=== PATIENT | male | born 1940 | race Caucasian/White ===

== ENCOUNTER 2017-07-07 00:42 | Inpatient (IN) | payer MEDICARE, OTHER ==
[~2017-07-07] VITALS: Ht 162.6 cm; Wt 63.0 kg
[~2017-07-07 00:42] MED LIST: AUD NEB; BENZ-51 PO; DABI75CA3 PO; DIGO125T PO; DILT30TA38 PO; DOCU100C19 PO; FLUT16H NASAL; FLUT1DIS3 IH; GABA-529 PO; IPRNEB IH; MONT10TA21 PO; MULT-1203 PO; OMEP20 PO; SERT50TA12 PO; TAMS0.4C32 PO; TIOT185 IH
[2017-07-07] MEDS ORDERED: LORA0.5T2 PO (01:12)
[2017-07-07] MEDS ORDERED: DILT60SR PO (01:12)
[2017-07-07] MEDS ORDERED: FURO20 PO (01:12)
[2017-07-07] MEDS ORDERED: ALBU8.5H8 IH (01:12)
[2017-07-07] MEDS ORDERED: MIRT15 PO (01:12)
[2017-07-07] MEDS ORDERED: PRIM50 PO (01:12)
[2017-07-07] MEDS ORDERED: BUDE10.2 IH (01:12)
[2017-07-07] MEDS ORDERED: ALEN70TA48 PO (01:12)
[2017-07-07] MEDS ORDERED: IBUP-2070 PO (01:12)
[2017-07-07] MEDS ORDERED: BENZ-51 PO (01:12)
[2017-07-07] MEDS ORDERED: CHOL200016 PO (01:12)
[2017-07-07] MEDS ORDERED: OMEP20 PO (01:12)
[2017-07-07] MEDS ORDERED: HYDR-309 PO (01:12)
[2017-07-07] MEDS ORDERED: CALC-1038 PO (01:12)
[2017-07-07] MEDS ORDERED: ALBUTEROL SULFATE 5 MG/ML 20 ML NEB SOLN [BULK] NEB ONE (01:45)
[2017-07-07] MEDS ORDERED: IPRATROPIUM BROMIDE 0.5 MG/2.5 ML NEB SOLUTION NEB ONE (01:45)
[2017-07-07 02:00] LABS: BASOPHILS # (AUTO) 0.03 K/uL (0.00-0.20); BASOPHILS % (AUTO) 0.3 % (0.0-2.0); EOSINOPHILS # (AUTO) 0.69 K/uL (0.00-0.70); EOSINOPHILS % (AUTO) 6.57 % (1.0-6.0); HEMATOCRIT 29.8 % (41-53); HEMOGLOBIN 9.5 g/dL (13.5-17.5); LYMPHOCYTES # (AUTO) 1.6 K/uL (1.0-4.8); LYMPHOCYTES % (AUTO) 15.2 % (22.0-44.0); MEAN CORPUSCULAR HEMOGLOBIN 22.9 pg (26.0-34.0); MEAN CORPUSCULAR VOLUME 72 fL (80-100); MONOCYTES # (AUTO) 1.4 K/uL (0.1-1.0); MONOCYTES % (AUTO) 13.1 % (2.0-9.0); NEUTROPHILS # (AUTO) 6.9 K/uL (1.8-7.7); NEUTROPHILS % (AUTO) 64.8 % (40.0-70.0); PLATELET COUNT (AUTO) 245 K/uL (150-450); RED BLOOD CELL COUNT(AUTO) 4.16 MIL/uL (4.50-5.90); RED CELL DISTRIBUTION WIDTH 20.5 % (11.5-14.5); WHITE BLOOD COUNT (AUTO) 10.6 K/uL (4.5-11.0)
[2017-07-07 02:09] LABS: ANION GAP 5 mmol/L (8-16); CALCIUM, TOTAL 8.5 mg/dL (8.8-10.5); CARBON DIOXIDE 31 mmol/L (22-29); CHLORIDE 102 mmol/L (98-107); CREATININE 0.74 mg/dL (0.60-1.30); GLOMERULAR FILTR. RATE CALC > 60 mL/min (>60); POTASSIUM 3.8 mmol/L (3.5-5.1); SODIUM SERUM 138 mmol/L (136-145); UREA NITROGEN, BLOOD 6 mg/dL (7-18)
[2017-07-07 02:15] LABS: ALANINE AMINOTRANSFERASE 23 U/L (12-78); ALBUMIN 2.7 g/dL (3.4-5.0); ASPARTATE AMINOTRANSFERASE 25 U/L (15-37); BILIRUBIN,TOTAL 0.3 mg/dL (0.1-1.0); TOTAL PROTEIN, SERUM 6.5 g/dL (6.4-8.2)
[2017-07-07 02:16] LABS: AMMONIA 20 umol/L (11-32)
[2017-07-07 02:21] LABS: TROPONIN I < 0.02 ng/mL (0.00-0.05)
[2017-07-07 02:27] LABS: GLUCOSE,POINT OF CARE 100 MG/DL (70-110)
[2017-07-07 02:30] LABS: B-TYPE NATRIURETIC PEPTIDE 142 pg/mL (0-100)
[2017-07-07] MEDS ORDERED: MethylPREDNISolone SOD SUCC 125 MG/2 ML VIAL IVP ONE (02:30)
[2017-07-07] MEDS ORDERED: AZITHROMYCIN 500 MG/NS 250 ML IV ONE (02:30)
[2017-07-07 02:53] LABS: RBC MORPHOLOGY COMMENT ABNORMAL RBC MORPH
[2017-07-07 03:49] LABS: ABG A-A DIFF O2 47.8 mmHg (10-20.0); ABG BASE EXCESS -0.6 mmol/L (-2.0-3.0); ABG HCO3 23.9 mmol/L (22.0-26.0); ABG OXYHEMOGLOBIN 95.7 % (94.0-100.0); ABG PCO2 44 mmHg (35-45); ABG PH 7.371 (7.35-7.450); TEMPERATURE, FAHRENHEIT, BG 98.6 FAHREN (96.0-98.6)
[2017-07-07 03:53] LABS: ALLEN TEST, BLOOD GAS Positive
[2017-07-07 03:57] LABS: APPEARANCE,URINE CLEAR (CLEAR); GLUCOSE, URINE (UA) NEGATIVE (NEGATIVE); KETONES,URINE NEGATIVE (NEGATIVE); LEUKOCYTE ESTERASE ,URINE NEGATIVE (NEGATIVE); OCCULT BLOOD,URINE TRACE (NEGATIVE); PROTEIN,URINE NEGATIVE (NEGATIVE)
[2017-07-07] MEDS ORDERED: 0.9% SODIUM CHLORIDE 10 ML SYRINGE IVP PRN (04:00)
[2017-07-07] MEDS ORDERED: ACETAMINOPHEN 325 MG TABLET PO PRN (04:00)
[2017-07-07] MEDS ORDERED: ONDANSETRON HCL 4 MG/2 ML VIAL IVP PRN (04:00)
[2017-07-07 04:23] VITALS: BP 140/100
[2017-07-07 04:23] LABS: WBC,URINE None Seen /HPF (0-5)
[2017-07-07] MEDS ORDERED: PNEUMOCOCCAL VACCINE POLYVALENT 0.5 ML VIAL [PPSV23] IM ONE (05:45)
[2017-07-07] MEDS: IPRATROPIUM BROMIDE 0.5 MG/2.5 ML NEB SOLUTION NEB PRN ×2 (07:15→10:38)
[2017-07-07] MEDS: ALBUTEROL SULFATE 2.5 MG/0.5 ML NEB SOLUTION NEB PRN ×2 (07:15→10:38)
[2017-07-07 07:56] VITALS: BP 118/82
[2017-07-07 11:11] VITALS: BP 123/71
[2017-07-07] MEDS ORDERED: HYDROCODONE/ACETAMINOPHEN 5-325 MG TABLET PO PRN (13:30)
[2017-07-07] MEDS: BENZONATATE 100 MG CAPSULE PO SCH ×2 (15:34→20:16)
[2017-07-07] MEDS: DEXTROSE 5%-0.9% SODIUM CHL 1,000 ML IV SCH (15:34)
[2017-07-07] MEDS: ENOXAPARIN SODIUM 30 MG/0.3 ML PF SYRINGE SQ SCH (15:34)
[2017-07-07] MEDS: CefTRIAXone 1 GM/DEXTROSE 50 ML IV SCH (15:34)
[2017-07-07] MEDS: ALBUTEROL SULFATE 2.5 MG/0.5 ML NEB SOLUTION NEB SCH ×3 (15:41→23:00)
[2017-07-07] MEDS: IPRATROPIUM BROMIDE 0.5 MG/2.5 ML NEB SOLUTION NEB SCH ×3 (15:41→23:00)
[2017-07-07 15:43] VITALS: BP 97/70
[2017-07-07] MEDS: MethylPREDNISolone SOD SUCC 125 MG/2 ML VIAL IVP SCH ×2 (18:11→23:09)
[2017-07-07] MEDS: CALCIUM OYSTER SHELL 500 MG TABLET PO SCH (18:12)
[2017-07-07 19:36] VITALS: BP 139/74
[2017-07-07] MEDS: OMEPRAZOLE 20 MG CAPSULE PO SCH (20:15)
[2017-07-07] MEDS: MIRTAZAPINE 15 MG TABLET PO SCH (20:15)
[2017-07-07] MEDS: GABAPENTIN 100 MG CAPSULE PO SCH (20:16)
[2017-07-07 21:24] LABS: PROCALCITONIN (PCT) < 0.50 ng/mL (<0.50)
[2017-07-08] VITALS: BP 96/51
[2017-07-08] MEDS: IPRATROPIUM BROMIDE 0.5 MG/2.5 ML NEB SOLUTION NEB SCH ×6 (02:54→23:00)
[2017-07-08] MEDS: ALBUTEROL SULFATE 2.5 MG/0.5 ML NEB SOLUTION NEB SCH ×6 (02:54→23:00)
[2017-07-08] MEDS: DEXTROSE 5%-0.9% SODIUM CHL 1,000 ML IV SCH ×2 (03:46→16:25)
[2017-07-08] MEDS: MethylPREDNISolone SOD SUCC 125 MG/2 ML VIAL IVP SCH ×4 (05:00→23:58)
[2017-07-08] MEDS: SERTRALINE HCL 50 MG TABLET PO SCH (08:45)
[2017-07-08] MEDS: CHOLECALCIFEROL (VIT D3) 2,000 UNITS TABLET PO SCH (08:45)
[2017-07-08] MEDS: PRIMIDONE 50 MG TABLET PO SCH (08:45)
[2017-07-08] MEDS: MONTELUKAST SODIUM 10 MG TABLET PO SCH (08:45)
[2017-07-08] MEDS: OMEPRAZOLE 20 MG CAPSULE PO SCH ×2 (08:45→20:27)
[2017-07-08] MEDS: BENZONATATE 100 MG CAPSULE PO SCH ×2 (08:45→20:27)
[2017-07-08] MEDS: ENOXAPARIN SODIUM 30 MG/0.3 ML PF SYRINGE SQ SCH (08:45)
[2017-07-08] MEDS: GABAPENTIN 100 MG CAPSULE PO SCH ×2 (08:45→20:27)
[2017-07-08] MEDS: CALCIUM OYSTER SHELL 500 MG TABLET PO SCH ×3 (08:45→17:44)
[2017-07-08 08:53] LABS: BASOPHILS % (AUTO) 0.1 % (0.0-2.0); EOSINOPHILS % (AUTO) 0 % (1.0-6.0); HEMATOCRIT 31.1 % (41-53); HEMOGLOBIN 9.7 g/dL (13.5-17.5); LYMPHOCYTES # (AUTO) 0.9 K/uL (1.0-4.8); MEAN CORPUSCULAR HEMOGLOBIN 22.7 pg (26.0-34.0); MEAN CORPUSCULAR HGB CONC 31.4 G/dL (31.0-37.0); MEAN CORPUSCULAR VOLUME 72 fL (80-100); MONOCYTES # (AUTO) 0.3 K/uL (0.1-1.0); MONOCYTES % (AUTO) 3.6 % (2.0-9.0); PLATELET COUNT (AUTO) 287 K/uL (150-450); RED BLOOD CELL COUNT(AUTO) 4.29 MIL/uL (4.50-5.90); RED CELL DISTRIBUTION WIDTH 20.7 % (11.5-14.5); WHITE BLOOD COUNT (AUTO) 8.2 K/uL (4.5-11.0)
[2017-07-08 08:54] LABS: NEUTROPHILS % (AUTO) 85.3 % (40.0-70.0)
[2017-07-08 09:09] LABS: ALANINE AMINOTRANSFERASE 23 U/L (12-78); ALBUMIN 2.6 g/dL (3.4-5.0); ANION GAP 8 mmol/L (8-16); ASPARTATE AMINOTRANSFERASE 20 U/L (15-37); BILIRUBIN,TOTAL 0.2 mg/dL (0.1-1.0); CALCIUM, TOTAL 8.5 mg/dL (8.8-10.5); CARBON DIOXIDE 27 mmol/L (22-29); CHLORIDE 106 mmol/L (98-107); CREATININE 0.69 mg/dL (0.60-1.30); GLOMERULAR FILTR. RATE CALC > 60 mL/min (>60); POTASSIUM 3.9 mmol/L (3.5-5.1); SODIUM SERUM 141 mmol/L (136-145); TOTAL PROTEIN, SERUM 7.1 g/dL (6.4-8.2); UREA NITROGEN, BLOOD 9 mg/dL (7-18)
[2017-07-08] MEDS: ONDANSETRON HCL 4 MG/2 ML VIAL IVP PRN ×2 (11:29→17:45)
[2017-07-08 11:41] VITALS: BP 101/57
[2017-07-08 13:03] LABS: VITAMIN B12 LEVEL > 2000 pg/mL (211-911)
[2017-07-08] MEDS: CefTRIAXone 1 GM/DEXTROSE 50 ML IV SCH (14:26)
[2017-07-08 19:49] VITALS: BP 121/65
[2017-07-08] MEDS: MIRTAZAPINE 15 MG TABLET PO SCH (20:28)
[2017-07-09 00:20] VITALS: BP 106/57
[2017-07-09] MEDS: IPRATROPIUM BROMIDE 0.5 MG/2.5 ML NEB SOLUTION NEB SCH ×6 (02:43→23:38)
[2017-07-09] MEDS: ALBUTEROL SULFATE 2.5 MG/0.5 ML NEB SOLUTION NEB SCH ×6 (02:43→23:38)
[2017-07-09 04:12] VITALS: BP 100/58
[2017-07-09] MEDS: MethylPREDNISolone SOD SUCC 125 MG/2 ML VIAL IVP SCH ×3 (04:57→17:06)
[2017-07-09] MEDS: ALENDRONATE SODIUM 70 MG TABLET PO SCH (05:32)
[2017-07-09 07:36] VITALS: BP 119/72
[2017-07-09] MEDS: PRIMIDONE 50 MG TABLET PO SCH (10:04)
[2017-07-09] MEDS: CALCIUM OYSTER SHELL 500 MG TABLET PO SCH ×3 (10:04→17:06)
[2017-07-09] MEDS: GABAPENTIN 100 MG CAPSULE PO SCH ×2 (10:05→20:31)
[2017-07-09] MEDS: SERTRALINE HCL 50 MG TABLET PO SCH (10:06)
[2017-07-09] MEDS: MONTELUKAST SODIUM 10 MG TABLET PO SCH (10:06)
[2017-07-09] MEDS: CHOLECALCIFEROL (VIT D3) 2,000 UNITS TABLET PO SCH (10:06)
[2017-07-09] MEDS: BENZONATATE 100 MG CAPSULE PO SCH ×2 (10:06→20:32)
[2017-07-09] MEDS: OMEPRAZOLE 20 MG CAPSULE PO SCH ×2 (10:06→20:32)
[2017-07-09] MEDS: ENOXAPARIN SODIUM 30 MG/0.3 ML PF SYRINGE SQ SCH (10:07)
[2017-07-09 11:46] VITALS: BP 135/72
[2017-07-09] MEDS ORDERED: SODIUM CHLORIDE 0.9% 500 ML IV ONE (14:02)
[2017-07-09] MEDS: CefTRIAXone 1 GM/DEXTROSE 50 ML IV SCH (14:07)
[2017-07-09] MEDS: ONDANSETRON HCL 4 MG/2 ML VIAL IVP PRN ×2 (14:52→21:15)
[2017-07-09 15:46] VITALS: BP 131/75
[2017-07-09] MEDS ORDERED: MAGNESIUM HYDROXIDE SUSPENSION 30 ML UDCUP PO PRN (18:15)
[2017-07-09 19:37] VITALS: BP 127/68
[2017-07-09] MEDS ORDERED: IOVERSOL 320 MG/ML 100 ML VIAL ONE (20:23)
[2017-07-09] MEDS ORDERED: SODIUM CHLORIDE 0.9% 100 ML ONE (20:23)
[2017-07-09] MEDS ORDERED: BARIUM SULFATE 0.1% SUSPENSION 450 ML BOTTLE ONE (20:25)
[2017-07-09] MEDS: MIRTAZAPINE 15 MG TABLET PO SCH (20:31)
[2017-07-09] MEDS: IRON SUCROSE COMPLEX 100 MG in SODIUM CHLORIDE 0.9% 100 ML IV SCH (20:31)
[2017-07-10] VITALS (7 sets, daily range): BP systolic 110–130; BP diastolic 57–77
[2017-07-10] MEDS: MethylPREDNISolone SOD SUCC 125 MG/2 ML VIAL IVP SCH ×2 (00:25→05:23)
[2017-07-10] MEDS: ALBUTEROL SULFATE 2.5 MG/0.5 ML NEB SOLUTION NEB SCH ×6 (03:07→23:55)
[2017-07-10] MEDS: IPRATROPIUM BROMIDE 0.5 MG/2.5 ML NEB SOLUTION NEB SCH ×6 (03:07→23:55)
[2017-07-10 06:17] LABS: HEMATOCRIT 29.2 % (41-53); HEMOGLOBIN 9.1 g/dL (13.5-17.5); MEAN CORPUSCULAR HEMOGLOBIN 22.7 pg (26.0-34.0); MEAN CORPUSCULAR HGB CONC 31.1 G/dL (31.0-37.0); MEAN CORPUSCULAR VOLUME 73 fL (80-100); PLATELET COUNT (AUTO) 252 K/uL (150-450); RED CELL DISTRIBUTION WIDTH 20.8 % (11.5-14.5); WHITE BLOOD COUNT (AUTO) 9.7 K/uL (4.5-11.0)
[2017-07-10 06:27] LABS: ALANINE AMINOTRANSFERASE 21 U/L (12-78); ALBUMIN 2.6 g/dL (3.4-5.0); AMYLASE 40 U/L (25-115); ANION GAP 5 mmol/L (8-16); ASPARTATE AMINOTRANSFERASE 15 U/L (15-37); BILIRUBIN,TOTAL 0.1 mg/dL (0.1-1.0); CARBON DIOXIDE 32 mmol/L (22-29); CHLORIDE 107 mmol/L (98-107); CREATININE 0.75 mg/dL (0.60-1.30); GLOMERULAR FILTR. RATE CALC > 60 mL/min (>60); PHOSPHORUS 3.1 mg/dL (2.5-4.9); POTASSIUM 4.8 mmol/L (3.5-5.1); SODIUM SERUM 144 mmol/L (136-145); TOTAL PROTEIN, SERUM 6.3 g/dL (6.4-8.2); UREA NITROGEN, BLOOD 13 mg/dL (7-18)
[2017-07-10 07:51] LABS: BAND NEUTROPHILS % (MANUAL) 1 % (1-5); LYMPHOCYTES % (MANUAL) 4 % (22-44); TOTAL CELLS COUNTED 100
[2017-07-10 07:52] LABS: RBC MORPHOLOGY COMMENT ABNORMAL R
[2017-07-10] MEDS: CALCIUM OYSTER SHELL 500 MG TABLET PO SCH ×3 (08:00→17:26)
[2017-07-10] MEDS: SERTRALINE HCL 50 MG TABLET PO SCH (09:00)
[2017-07-10] MEDS: CHOLECALCIFEROL (VIT D3) 2,000 UNITS TABLET PO SCH (09:00)
[2017-07-10] MEDS: BENZONATATE 100 MG CAPSULE PO SCH ×3 (09:00→20:57)
[2017-07-10] MEDS: GABAPENTIN 100 MG CAPSULE PO SCH ×2 (09:00→20:57)
[2017-07-10] MEDS: PRIMIDONE 50 MG TABLET PO SCH (09:00)
[2017-07-10] MEDS: MONTELUKAST SODIUM 10 MG TABLET PO SCH (09:00)
[2017-07-10] MEDS: OMEPRAZOLE 20 MG CAPSULE PO SCH ×2 (09:00→20:57)
[2017-07-10] MEDS: MethylPREDNISolone SOD SUCC 40 MG/ML VIAL IVP SCH ×2 (11:14→17:26)
[2017-07-10] MEDS: CefTRIAXone 1 GM/DEXTROSE 50 ML IV SCH (14:35)
[2017-07-10] MEDS: LORazepam 0.5 MG TABLET PO PRN (17:34)
[2017-07-10] MEDS: MIRTAZAPINE 15 MG TABLET PO SCH (20:57)
[2017-07-10] MEDS: IRON SUCROSE COMPLEX 100 MG in SODIUM CHLORIDE 0.9% 100 ML IV SCH (20:57)
[2017-07-11] MEDS: MethylPREDNISolone SOD SUCC 40 MG/ML VIAL IVP SCH ×5 (00:39→23:39)
[2017-07-11] MEDS: ALBUTEROL SULFATE 2.5 MG/0.5 ML NEB SOLUTION NEB SCH ×6 (03:57→23:25)
[2017-07-11] MEDS: IPRATROPIUM BROMIDE 0.5 MG/2.5 ML NEB SOLUTION NEB SCH ×6 (03:57→23:25)
[2017-07-11 04:40] VITALS: BP 126/68
[2017-07-11 07:30] VITALS: BP 130/81
[2017-07-11] MEDS: CALCIUM OYSTER SHELL 500 MG TABLET PO SCH ×3 (08:00→20:54)
[2017-07-11] MEDS: GABAPENTIN 100 MG CAPSULE PO SCH ×2 (09:00→20:54)
[2017-07-11] MEDS: OMEPRAZOLE 20 MG CAPSULE PO SCH ×2 (09:00→20:54)
[2017-07-11 09:05] LABS: INR 1.2 (0.9-1.1); PROTHROMBIN TIME 12.4 SEC (9.4-11.6)
[2017-07-11] MEDS ORDERED: SODIUM CHLORIDE 0.9% 1,000 ML IV ONE ×3 (11:00→11:15)
[2017-07-11] MEDS ORDERED: LIDOCAINE HCL/PF 2% 5 ML VIAL INJ ONE (12:00)
[2017-07-11] MEDS ORDERED: PROPOFOL 1% 20 ML VIAL IVP ONE (12:00)
[2017-07-11] MEDS ORDERED: PEG 3350/NA SULF,BICARB,CL/KCL 4000 ML SOLUTION PO ONE (12:45)
[2017-07-11] MEDS: PRIMIDONE 50 MG TABLET PO SCH (14:11)
[2017-07-11] MEDS: BENZONATATE 100 MG CAPSULE PO SCH ×3 (14:12→20:54)
[2017-07-11] MEDS: MONTELUKAST SODIUM 10 MG TABLET PO SCH (14:12)
[2017-07-11] MEDS: CHOLECALCIFEROL (VIT D3) 2,000 UNITS TABLET PO SCH (14:13)
[2017-07-11] MEDS: SERTRALINE HCL 50 MG TABLET PO SCH (14:14)
[2017-07-11] MEDS: CefTRIAXone 1 GM/DEXTROSE 50 ML IV SCH (14:52)
[2017-07-11] MEDS: LORazepam 0.5 MG TABLET PO PRN (15:48)
[2017-07-11 16:05] VITALS: BP 139/76
[2017-07-11 19:59] VITALS: BP 147/83
[2017-07-11] MEDS: MIRTAZAPINE 15 MG TABLET PO SCH (20:54)
[2017-07-11] MEDS: IRON SUCROSE COMPLEX 100 MG in SODIUM CHLORIDE 0.9% 100 ML IV SCH (20:55)
[2017-07-11 23:33] VITALS: BP 116/60
[2017-07-12] MEDS: IPRATROPIUM BROMIDE 0.5 MG/2.5 ML NEB SOLUTION NEB SCH ×6 (04:06→23:27)
[2017-07-12] MEDS: ALBUTEROL SULFATE 2.5 MG/0.5 ML NEB SOLUTION NEB SCH ×6 (04:06→23:27)
[2017-07-12 04:58] VITALS: BP 139/73
[2017-07-12] MEDS: MethylPREDNISolone SOD SUCC 40 MG/ML VIAL IVP SCH ×4 (05:11→23:01)
[2017-07-12 06:15] LABS: EOSINOPHILS % (AUTO) 0.1 % (1.0-6.0); HEMATOCRIT 30.1 % (41-53); HEMOGLOBIN 9.4 g/dL (13.5-17.5); LYMPHOCYTES # (AUTO) 0.5 K/uL (1.0-4.8); LYMPHOCYTES % (AUTO) 8.1 % (22.0-44.0); MEAN CORPUSCULAR HEMOGLOBIN 22.6 pg (26.0-34.0); MEAN CORPUSCULAR HGB CONC 31.1 G/dL (31.0-37.0); MEAN CORPUSCULAR VOLUME 72 fL (80-100); MONOCYTES # (AUTO) 0.2 K/uL (0.1-1.0); MONOCYTES % (AUTO) 3.2 % (2.0-9.0); NEUTROPHILS # (AUTO) 5.1 K/uL (1.8-7.7); PLATELET COUNT (AUTO) 257 K/uL (150-450); RED BLOOD CELL COUNT(AUTO) 4.15 MIL/uL (4.50-5.90); WHITE BLOOD COUNT (AUTO) 5.7 K/uL (4.5-11.0)
[2017-07-12 06:27] LABS: ANION GAP 6 mmol/L (8-16); CARBON DIOXIDE 32 mmol/L (22-29); CHLORIDE 106 mmol/L (98-107); CREATININE 0.59 mg/dL (0.60-1.30); GLOMERULAR FILTR. RATE CALC > 60 mL/min (>60); POTASSIUM 3.9 mmol/L (3.5-5.1); SODIUM SERUM 144 mmol/L (136-145); UREA NITROGEN, BLOOD 11 mg/dL (7-18)
[2017-07-12 06:58] LABS: NEUTROPHILS % (AUTO) 88.6 % (40.0-70.0)
[2017-07-12 07:29] VITALS: BP 134/78
[2017-07-12] MEDS: CALCIUM OYSTER SHELL 500 MG TABLET PO SCH ×3 (08:00→18:26)
[2017-07-12 08:32] LABS: RBC MORPHOLOGY COMMENT ABNORMAL RBC MORPH
[2017-07-12] MEDS ORDERED: SODIUM CHLORIDE 0.9% 1,000 ML IV ONE ×2 (10:30→10:39)
[2017-07-12] MEDS ORDERED: MIDAZOLAM HCL 5 MG/ML VIAL ONE (11:38)
[2017-07-12] MEDS ORDERED: FentaNYL CITRATE-PF 100 MCG/2 ML VIAL ONE (11:39)
[2017-07-12 12:55] VITALS: BP 142/92
[2017-07-12] MEDS: PRIMIDONE 50 MG TABLET PO SCH (12:59)
[2017-07-12] MEDS: BENZONATATE 100 MG CAPSULE PO SCH ×3 (12:59→20:23)
[2017-07-12] MEDS: GABAPENTIN 100 MG CAPSULE PO SCH ×2 (12:59→20:22)
[2017-07-12] MEDS: OMEPRAZOLE 20 MG CAPSULE PO SCH ×2 (12:59→20:23)
[2017-07-12] MEDS: CHOLECALCIFEROL (VIT D3) 2,000 UNITS TABLET PO SCH (12:59)
[2017-07-12] MEDS: SERTRALINE HCL 50 MG TABLET PO SCH (12:59)
[2017-07-12] MEDS: MONTELUKAST SODIUM 10 MG TABLET PO SCH (12:59)
[2017-07-12] MEDS: CefTRIAXone 1 GM/DEXTROSE 50 ML IV SCH (14:34)
[2017-07-12] MEDS: IRON SUCROSE COMPLEX 100 MG in SODIUM CHLORIDE 0.9% 100 ML IV SCH (18:27)
[2017-07-12 20:00] VITALS: BP 126/91
[2017-07-12] MEDS: MIRTAZAPINE 15 MG TABLET PO SCH (20:23)
[2017-07-13] VITALS (8 sets, daily range): BP systolic 117–141; BP diastolic 65–82
[2017-07-13] MEDS: ALBUTEROL SULFATE 2.5 MG/0.5 ML NEB SOLUTION NEB SCH ×6 (03:00→23:48)
[2017-07-13] MEDS: IPRATROPIUM BROMIDE 0.5 MG/2.5 ML NEB SOLUTION NEB SCH ×6 (03:00→23:48)
[2017-07-13] MEDS: MethylPREDNISolone SOD SUCC 40 MG/ML VIAL IVP SCH ×4 (05:02→23:28)
[2017-07-13] MEDS ORDERED: TRIAMCINOLONE ACETONIDE 40 MG/ML VIAL IARTIC ONE (08:30)
[2017-07-13] MEDS ORDERED: IOHEXOL 300 MG/ML 10 ML VIAL IARTIC ONE (08:30)
[2017-07-13] MEDS ORDERED: LIDOCAINE HCL/PF 1% 30 ML VIAL INJ ONE (08:30)
[2017-07-13] MEDS ORDERED: BUPIVACAINE HCL/PF 0.75% 10 ML VIAL IARTIC ONE (08:30)
[2017-07-13] MEDS ORDERED: BENZOCAINE 20% 50 MCG/SPRAY 57 GM ONE (09:20)
[2017-07-13] MEDS ORDERED: FentaNYL CITRATE-PF 100 MCG/2 ML VIAL ONE (09:35)
[2017-07-13] MEDS ORDERED: MIDAZOLAM HCL 2 MG/2 ML VIAL ONE (09:36)
[2017-07-13] MEDS ORDERED: FentaNYL CITRATE-PF 100 MCG/2 ML VIAL IVP ONE ×2 (10:15)
[2017-07-13] MEDS ORDERED: MIDAZOLAM HCL 2 MG/2 ML VIAL IVP ONE ×2 (10:15)
[2017-07-13] MEDS ORDERED: BENZOCAINE 20% 30 ML SOLUTION TP ONE (10:15)
[2017-07-13] MEDS: OXYGEN THERAPY IH SCH ×2 (11:12→20:52)
[2017-07-13] MEDS: SERTRALINE HCL 50 MG TABLET PO SCH (11:38)
[2017-07-13] MEDS: CALCIUM OYSTER SHELL 500 MG TABLET PO SCH ×3 (11:38→18:42)
[2017-07-13] MEDS: GABAPENTIN 100 MG CAPSULE PO SCH ×2 (11:38→20:47)
[2017-07-13] MEDS: BENZONATATE 100 MG CAPSULE PO SCH ×3 (11:38→20:47)
[2017-07-13] MEDS: MONTELUKAST SODIUM 10 MG TABLET PO SCH (11:38)
[2017-07-13] MEDS: PRIMIDONE 50 MG TABLET PO SCH (11:38)
[2017-07-13] MEDS: CHOLECALCIFEROL (VIT D3) 2,000 UNITS TABLET PO SCH (11:38)
[2017-07-13] MEDS: OMEPRAZOLE 20 MG CAPSULE PO SCH ×2 (11:38→20:47)
[2017-07-13] MEDS: CefTRIAXone 1 GM/DEXTROSE 50 ML IV SCH (14:56)
[2017-07-13] MEDS ORDERED: PNEUMOCOCCAL VACCINE POLYVALENT 0.5 ML VIAL [PPSV23] IM ONE (15:15)
[2017-07-13] MEDS: IRON SUCROSE COMPLEX 100 MG in SODIUM CHLORIDE 0.9% 100 ML IV SCH (18:44)
[2017-07-13] MEDS: MIRTAZAPINE 15 MG TABLET PO SCH (20:48)
[2017-07-14] VITALS (7 sets, daily range): BP systolic 113–151; BP diastolic 72–89
[2017-07-14] MEDS: ALBUTEROL SULFATE 2.5 MG/0.5 ML NEB SOLUTION NEB SCH ×6 (02:47→23:14)
[2017-07-14] MEDS: IPRATROPIUM BROMIDE 0.5 MG/2.5 ML NEB SOLUTION NEB SCH ×6 (02:47→23:14)
[2017-07-14] MEDS: MethylPREDNISolone SOD SUCC 40 MG/ML VIAL IVP SCH ×4 (05:54→23:18)
[2017-07-14] MEDS: OXYGEN THERAPY IH SCH ×2 (07:59→20:23)
[2017-07-14] MEDS ORDERED: CLARITHROMYCIN 250 MG TABLET PO SCH (09:00)
[2017-07-14] MEDS: OMEPRAZOLE 20 MG CAPSULE PO SCH ×2 (09:11→20:28)
[2017-07-14] MEDS: BENZONATATE 100 MG CAPSULE PO SCH ×3 (09:13→20:28)
[2017-07-14] MEDS: GABAPENTIN 100 MG CAPSULE PO SCH ×2 (09:13→20:24)
[2017-07-14] MEDS: CALCIUM OYSTER SHELL 500 MG TABLET PO SCH ×3 (09:13→17:50)
[2017-07-14] MEDS: SERTRALINE HCL 50 MG TABLET PO SCH (09:13)
[2017-07-14] MEDS: MONTELUKAST SODIUM 10 MG TABLET PO SCH (09:13)
[2017-07-14] MEDS: PRIMIDONE 50 MG TABLET PO SCH (09:14)
[2017-07-14] MEDS ORDERED: CLARITHROMYCIN 500 MG TABLET PO SCH (09:44)
[2017-07-14] MEDS: CLARITHROMYCIN 500 MG TABLET PO SCH ×2 (10:26→20:24)
[2017-07-14] MEDS: CHOLECALCIFEROL (VIT D3) 2,000 UNITS TABLET PO SCH (10:26)
[2017-07-14] MEDS: AMOXICILLIN TRIHYDRATE 500 MG CAPSULE PO SCH ×2 (10:26→20:25)
[2017-07-14] MEDS: CefTRIAXone 1 GM/DEXTROSE 50 ML IV SCH (14:15)
[2017-07-14] MEDS: MIRTAZAPINE 15 MG TABLET PO SCH (20:28)
[2017-07-15] MEDS: ALBUTEROL SULFATE 2.5 MG/0.5 ML NEB SOLUTION NEB SCH ×6 (02:59→23:17)
[2017-07-15] MEDS: IPRATROPIUM BROMIDE 0.5 MG/2.5 ML NEB SOLUTION NEB SCH ×6 (02:59→23:17)
[2017-07-15] MEDS: MethylPREDNISolone SOD SUCC 40 MG/ML VIAL IVP SCH ×4 (05:31→23:07)
[2017-07-15 05:56] VITALS: BP 123/75
[2017-07-15] MEDS: MONTELUKAST SODIUM 10 MG TABLET PO SCH (08:36)
[2017-07-15] MEDS: CALCIUM OYSTER SHELL 500 MG TABLET PO SCH ×3 (08:36→17:58)
[2017-07-15] MEDS: OMEPRAZOLE 20 MG CAPSULE PO SCH ×2 (08:36→20:35)
[2017-07-15] MEDS: BENZONATATE 100 MG CAPSULE PO SCH ×3 (08:36→20:36)
[2017-07-15] MEDS: SERTRALINE HCL 50 MG TABLET PO SCH (08:37)
[2017-07-15] MEDS: GABAPENTIN 100 MG CAPSULE PO SCH ×2 (08:37→20:35)
[2017-07-15] MEDS: CLARITHROMYCIN 500 MG TABLET PO SCH ×2 (08:37→20:35)
[2017-07-15] MEDS: PRIMIDONE 50 MG TABLET PO SCH (08:37)
[2017-07-15] MEDS: AMOXICILLIN TRIHYDRATE 500 MG CAPSULE PO SCH ×2 (08:37→20:35)
[2017-07-15] MEDS: OXYGEN THERAPY IH SCH ×2 (08:38→20:40)
[2017-07-15 09:04] VITALS: BP 126/81
[2017-07-15] MEDS: CHOLECALCIFEROL (VIT D3) 2,000 UNITS TABLET PO SCH (10:34)
[2017-07-15 11:29] VITALS: BP 121/72
[2017-07-15] MEDS: CefTRIAXone 1 GM/DEXTROSE 50 ML IV SCH (14:28)
[2017-07-15] MEDS ORDERED: SODIUM CHLORIDE 0.9% 50 ML ONE (14:29)
[2017-07-15 15:52] VITALS: BP 134/74
[2017-07-15 20:14] VITALS: BP 116/69
[2017-07-15] MEDS: MIRTAZAPINE 15 MG TABLET PO SCH (20:36)
[2017-07-15 23:45] VITALS: BP 111/57
[2017-07-16] MEDS: ALBUTEROL SULFATE 2.5 MG/0.5 ML NEB SOLUTION NEB SCH ×6 (03:20→23:00)
[2017-07-16] MEDS: IPRATROPIUM BROMIDE 0.5 MG/2.5 ML NEB SOLUTION NEB SCH ×6 (03:20→23:00)
[2017-07-16 04:55] VITALS: BP 128/94
[2017-07-16] MEDS: MethylPREDNISolone SOD SUCC 40 MG/ML VIAL IVP SCH (05:01)
[2017-07-16] MEDS: ALENDRONATE SODIUM 70 MG TABLET PO SCH (06:30)
[2017-07-16 07:29] VITALS: BP 128/74
[2017-07-16 07:34] LABS: ALANINE AMINOTRANSFERASE 19 U/L (12-78); ALBUMIN 2.5 g/dL (3.4-5.0); ANION GAP 7 mmol/L (8-16); ASPARTATE AMINOTRANSFERASE 9 U/L (15-37); BILIRUBIN,TOTAL 0.2 mg/dL (0.1-1.0); CALCIUM, TOTAL 8.2 mg/dL (8.8-10.5); CARBON DIOXIDE 29 mmol/L (22-29); CHLORIDE 106 mmol/L (98-107); GLOMERULAR FILTR. RATE CALC > 60 mL/min (>60); SODIUM SERUM 142 mmol/L (136-145); TOTAL PROTEIN, SERUM 5.8 g/dL (6.4-8.2); UREA NITROGEN, BLOOD 17 mg/dL (7-18)
[2017-07-16 08:39] LABS: EOSINOPHILS % (AUTO) 0 % (1.0-6.0); HEMATOCRIT 32.4 % (41-53); LYMPHOCYTES # (AUTO) 0.3 K/uL (1.0-4.8); LYMPHOCYTES % (AUTO) 3.2 % (22.0-44.0); MEAN CORPUSCULAR HEMOGLOBIN 22.9 pg (26.0-34.0); MEAN CORPUSCULAR HGB CONC 30.9 G/dL (31.0-37.0); MEAN CORPUSCULAR VOLUME 74 fL (80-100); MONOCYTES # (AUTO) 0.5 K/uL (0.1-1.0); MONOCYTES % (AUTO) 5.2 % (2.0-9.0); NEUTROPHILS # (AUTO) 9.5 K/uL (1.8-7.7); PLATELET COUNT (AUTO) 262 K/uL (150-450); RED BLOOD CELL COUNT(AUTO) 4.38 MIL/uL (4.50-5.90); RED CELL DISTRIBUTION WIDTH 20.9 % (11.5-14.5); WHITE BLOOD COUNT (AUTO) 10.4 K/uL (4.5-11.0)
[2017-07-16 08:40] LABS: NEUTROPHILS % (AUTO) 91.6 % (40.0-70.0); RBC MORPHOLOGY COMMENT ABNORMAL RBC MORPH
[2017-07-16] MEDS: CLARITHROMYCIN 500 MG TABLET PO SCH ×2 (11:31→20:29)
[2017-07-16] MEDS: CALCIUM OYSTER SHELL 500 MG TABLET PO SCH ×3 (11:31→18:09)
[2017-07-16] MEDS: BENZONATATE 100 MG CAPSULE PO SCH ×3 (11:32→20:30)
[2017-07-16] MEDS: PRIMIDONE 50 MG TABLET PO SCH (11:32)
[2017-07-16] MEDS: CHOLECALCIFEROL (VIT D3) 2,000 UNITS TABLET PO SCH (11:32)
[2017-07-16] MEDS: MONTELUKAST SODIUM 10 MG TABLET PO SCH (11:32)
[2017-07-16] MEDS: OMEPRAZOLE 20 MG CAPSULE PO SCH ×2 (11:32→20:28)
[2017-07-16] MEDS: SERTRALINE HCL 50 MG TABLET PO SCH (11:32)
[2017-07-16] MEDS: GABAPENTIN 100 MG CAPSULE PO SCH ×2 (11:32→20:28)
[2017-07-16] MEDS: PredniSONE 20 MG TABLET PO SCH (11:32)
[2017-07-16] MEDS: CARVEDILOL 6.25 MG TABLET PO SCH ×2 (11:33→20:29)
[2017-07-16] MEDS: OXYGEN THERAPY IH SCH ×2 (11:34→20:28)
[2017-07-16 11:56] VITALS: BP 151/84
[2017-07-16] MEDS ORDERED: CARVEDILOL 6.25 MG TABLET PO ONE (12:30)
[2017-07-16 12:53] VITALS: BP 131/71
[2017-07-16 15:42] VITALS: BP 116/76
[2017-07-16] MEDS: CefTRIAXone 1 GM/DEXTROSE 50 ML IV SCH (16:07)
[2017-07-16] MEDS ORDERED: SODIUM CHLORIDE 0.9% 250 ML IV ONE (16:10)
[2017-07-16] MEDS: AMOXICILLIN TRIHYDRATE 500 MG CAPSULE PO SCH ×2 (18:09→20:30)
[2017-07-16 20:12] VITALS: BP 139/74
[2017-07-16] MEDS: MIRTAZAPINE 15 MG TABLET PO SCH (20:29)
[2017-07-17] VITALS (7 sets, daily range): BP systolic 117–132; BP diastolic 58–79
[2017-07-17] MEDS: ALBUTEROL SULFATE 2.5 MG/0.5 ML NEB SOLUTION NEB SCH ×6 (03:00→22:47)
[2017-07-17] MEDS: IPRATROPIUM BROMIDE 0.5 MG/2.5 ML NEB SOLUTION NEB SCH ×6 (03:00→22:46)
[2017-07-17] MEDS: CALCIUM OYSTER SHELL 500 MG TABLET PO SCH ×3 (08:24→18:57)
[2017-07-17] MEDS: CHOLECALCIFEROL (VIT D3) 2,000 UNITS TABLET PO SCH (08:25)
[2017-07-17] MEDS: GABAPENTIN 100 MG CAPSULE PO SCH ×2 (08:25→20:47)
[2017-07-17] MEDS: CLARITHROMYCIN 500 MG TABLET PO SCH ×2 (08:25→20:46)
[2017-07-17] MEDS: BENZONATATE 100 MG CAPSULE PO SCH ×3 (08:25→20:47)
[2017-07-17] MEDS: PRIMIDONE 50 MG TABLET PO SCH (08:25)
[2017-07-17] MEDS: PredniSONE 20 MG TABLET PO SCH (08:25)
[2017-07-17] MEDS: CARVEDILOL 6.25 MG TABLET PO SCH ×2 (08:25→20:47)
[2017-07-17] MEDS: SERTRALINE HCL 50 MG TABLET PO SCH (08:25)
[2017-07-17] MEDS: AMOXICILLIN TRIHYDRATE 500 MG CAPSULE PO SCH ×2 (08:25→20:47)
[2017-07-17] MEDS: MONTELUKAST SODIUM 10 MG TABLET PO SCH (08:26)
[2017-07-17] MEDS: OMEPRAZOLE 20 MG CAPSULE PO SCH ×2 (08:26→20:47)
[2017-07-17] MEDS: OXYGEN THERAPY IH SCH ×2 (08:26→20:45)
[2017-07-17] MEDS: CefTRIAXone 1 GM/DEXTROSE 50 ML IV SCH (14:57)
[2017-07-17] MEDS ORDERED: CARVEDILOL 6.25 MG TABLET PO ONE (15:15)
[2017-07-17] MEDS: MIRTAZAPINE 15 MG TABLET PO SCH (20:47)
[2017-07-18] MEDS: ALBUTEROL SULFATE 2.5 MG/0.5 ML NEB SOLUTION NEB SCH ×6 (03:00→23:00)
[2017-07-18] MEDS: IPRATROPIUM BROMIDE 0.5 MG/2.5 ML NEB SOLUTION NEB SCH ×6 (03:00→23:00)
[2017-07-18 05:02] VITALS: BP 128/70
[2017-07-18] MEDS: OXYGEN THERAPY IH SCH ×2 (07:26→20:30)
[2017-07-18 07:40] VITALS: BP 141/86
[2017-07-18] MEDS ORDERED: CARVEDILOL 12.5 MG TABLET PO ONE (09:00)
[2017-07-18] MEDS: PRIMIDONE 50 MG TABLET PO SCH (10:02)
[2017-07-18] MEDS: PredniSONE 20 MG TABLET PO SCH (10:02)
[2017-07-18] MEDS: CARVEDILOL 6.25 MG TABLET PO SCH ×2 (10:02→20:28)
[2017-07-18] MEDS: CALCIUM OYSTER SHELL 500 MG TABLET PO SCH ×3 (10:03→18:22)
[2017-07-18] MEDS: OMEPRAZOLE 20 MG CAPSULE PO SCH ×2 (10:03→20:21)
[2017-07-18] MEDS: CHOLECALCIFEROL (VIT D3) 2,000 UNITS TABLET PO SCH (10:03)
[2017-07-18] MEDS: CLARITHROMYCIN 500 MG TABLET PO SCH ×2 (10:03→20:22)
[2017-07-18] MEDS: SERTRALINE HCL 50 MG TABLET PO SCH (10:03)
[2017-07-18] MEDS: BENZONATATE 100 MG CAPSULE PO SCH ×3 (10:03→20:23)
[2017-07-18] MEDS: GABAPENTIN 100 MG CAPSULE PO SCH ×2 (10:03→20:21)
[2017-07-18] MEDS: AMOXICILLIN TRIHYDRATE 500 MG CAPSULE PO SCH ×2 (10:03→20:21)
[2017-07-18] MEDS: MONTELUKAST SODIUM 10 MG TABLET PO SCH (10:03)
[2017-07-18] MEDS ORDERED: CARVEDILOL 6.25 MG TABLET PO ONE ×2 (10:45→12:15)
[2017-07-18 11:47] VITALS: BP 136/70
[2017-07-18 15:25] VITALS: BP 109/68
[2017-07-18 19:44] VITALS: BP 119/77
[2017-07-18] MEDS: MIRTAZAPINE 15 MG TABLET PO SCH (20:22)
[2017-07-19] VITALS (8 sets, daily range): BP systolic 105–147; BP diastolic 58–80
[2017-07-19] MEDS: IPRATROPIUM BROMIDE 0.5 MG/2.5 ML NEB SOLUTION NEB SCH ×6 (03:00→23:00)
[2017-07-19] MEDS: ALBUTEROL SULFATE 2.5 MG/0.5 ML NEB SOLUTION NEB SCH ×6 (03:00→23:00)
[2017-07-19] MEDS: OMEPRAZOLE 20 MG CAPSULE PO SCH ×2 (08:05→21:07)
[2017-07-19] MEDS: CLARITHROMYCIN 500 MG TABLET PO SCH ×2 (08:05→21:07)
[2017-07-19] MEDS: GABAPENTIN 100 MG CAPSULE PO SCH ×2 (08:05→21:08)
[2017-07-19] MEDS: CARVEDILOL 6.25 MG TABLET PO SCH ×2 (08:05→21:08)
[2017-07-19] MEDS: PRIMIDONE 50 MG TABLET PO SCH (08:05)
[2017-07-19] MEDS: BENZONATATE 100 MG CAPSULE PO SCH ×3 (08:05→21:08)
[2017-07-19] MEDS: CALCIUM OYSTER SHELL 500 MG TABLET PO SCH ×3 (08:05→18:00)
[2017-07-19] MEDS: OXYGEN THERAPY IH SCH ×2 (08:06→21:15)
[2017-07-19] MEDS ORDERED: METOPROLOL TARTRATE 50 MG TABLET PO ONE ×2 (09:00→12:00)
[2017-07-19] MEDS: CHOLECALCIFEROL (VIT D3) 2,000 UNITS TABLET PO SCH (10:09)
[2017-07-19] MEDS: PredniSONE 20 MG TABLET PO SCH (10:10)
[2017-07-19] MEDS: SERTRALINE HCL 50 MG TABLET PO SCH (10:10)
[2017-07-19] MEDS: MONTELUKAST SODIUM 10 MG TABLET PO SCH (10:10)
[2017-07-19] MEDS: AMOXICILLIN TRIHYDRATE 500 MG CAPSULE PO SCH ×2 (10:10→21:07)
[2017-07-19] MEDS ORDERED: NITROGLYCERIN 400 MCG/SUBLINGUAL SPRAY 4.9 GM BOTTLE SL ONE (12:00)
[2017-07-19] MEDS ORDERED: METOPROLOL TARTRATE 5 MG/5 ML VIAL ONE ×2 (12:01)
[2017-07-19] MEDS ORDERED: IOVERSOL 350 MG/ML 150 ML VIAL ONE (12:06)
[2017-07-19] MEDS ORDERED: SODIUM CHLORIDE 0.9% 100 ML ONE (12:06)
[2017-07-19] MEDS ORDERED: METOPROLOL TARTRATE 5 MG/5 ML VIAL IVP ONE ×3 (12:20→13:00)
[2017-07-19] MEDS ORDERED: SODIUM CHLORIDE 0.9% 1,000 ML IV ONE (17:30)
[2017-07-19] MEDS ORDERED: HEPARIN SODIUM,PORCINE 5,000 UNITS/ML VIAL IVP PRN (20:00)
[2017-07-19 20:43] LABS: BASOPHILS # (AUTO) 0.05 K/uL (0.00-0.20); BASOPHILS % (AUTO) 0.6 % (0.0-2.0); EOSINOPHILS % (AUTO) 0.03 % (1.0-6.0); HEMATOCRIT 36.3 % (41-53); HEMOGLOBIN 11.6 g/dL (13.5-17.5); LYMPHOCYTES # (AUTO) 0.4 K/uL (1.0-4.8); LYMPHOCYTES % (AUTO) 4.6 % (22.0-44.0); MEAN CORPUSCULAR HEMOGLOBIN 23.8 pg (26.0-34.0); MEAN CORPUSCULAR HGB CONC 31.9 G/dL (31.0-37.0); MEAN CORPUSCULAR VOLUME 75 fL (80-100); MONOCYTES # (AUTO) 0.1 K/uL (0.1-1.0); MONOCYTES % (AUTO) 1.3 % (2.0-9.0); NEUTROPHILS # (AUTO) 7.9 K/uL (1.8-7.7); PLATELET COUNT (AUTO) 206 K/uL (150-450); RED BLOOD CELL COUNT(AUTO) 4.87 MIL/uL (4.50-5.90); RED CELL DISTRIBUTION WIDTH 24.5 % (11.5-14.5); WHITE BLOOD COUNT (AUTO) 8.5 K/uL (4.5-11.0)
[2017-07-19 21:00] LABS: INR 1.2 (0.9-1.1); PROTHROMBIN TIME 12.4 SEC (9.4-11.6)
[2017-07-19 21:04] LABS: NEUTROPHILS % (AUTO) 93.4 % (40.0-70.0)
[2017-07-19] MEDS: MIRTAZAPINE 15 MG TABLET PO SCH (21:07)
[2017-07-19 21:38] LABS: RBC MORPHOLOGY COMMENT ABNORMAL RBC MORPH
[2017-07-19] MEDS: HEPARIN SODIUM 25000 UNITS/D5W 250 ML IV PRN (21:45)
[2017-07-20 00:10] VITALS: BP 134/75
[2017-07-20] MEDS: ALBUTEROL SULFATE 2.5 MG/0.5 ML NEB SOLUTION NEB SCH ×6 (03:00→23:40)
[2017-07-20] MEDS: IPRATROPIUM BROMIDE 0.5 MG/2.5 ML NEB SOLUTION NEB SCH ×6 (03:00→23:40)
[2017-07-20 04:06] LABS: BASOPHILS % (AUTO) 0.1 % (0.0-2.0); EOSINOPHILS % (AUTO) 0.6 % (1.0-6.0); HEMATOCRIT 34.6 % (41-53); HEMOGLOBIN 10.8 g/dL (13.5-17.5); LYMPHOCYTES % (AUTO) 10.6 % (22.0-44.0); MEAN CORPUSCULAR HEMOGLOBIN 23.3 pg (26.0-34.0); MEAN CORPUSCULAR HGB CONC 31.1 G/dL (31.0-37.0); MEAN CORPUSCULAR VOLUME 75 fL (80-100); MONOCYTES # (AUTO) 0.8 K/uL (0.1-1.0); MONOCYTES % (AUTO) 8.7 % (2.0-9.0); NEUTROPHILS # (AUTO) 7.3 K/uL (1.8-7.7); PLATELET COUNT (AUTO) 204 K/uL (150-450); RED BLOOD CELL COUNT(AUTO) 4.62 MIL/uL (4.50-5.90); RED CELL DISTRIBUTION WIDTH 23.6 % (11.5-14.5); WHITE BLOOD COUNT (AUTO) 9.2 K/uL (4.5-11.0)
[2017-07-20 04:09] LABS: ANION GAP 3 mmol/L (8-16); CALCIUM, TOTAL 7.9 mg/dL (8.8-10.5); CARBON DIOXIDE 34 mmol/L (22-29); CHLORIDE 104 mmol/L (98-107); CREATININE 0.64 mg/dL (0.60-1.30); GLOMERULAR FILTR. RATE CALC > 60 mL/min (>60); POTASSIUM 4.1 mmol/L (3.5-5.1); SODIUM SERUM 141 mmol/L (136-145); UREA NITROGEN, BLOOD 19 mg/dL (7-18)
[2017-07-20 04:10] VITALS: BP 137/81
[2017-07-20 04:34] LABS: RBC MORPHOLOGY COMMENT ABNORMAL RBC MORPH
[2017-07-20] MEDS: HEPARIN SODIUM 25000 UNITS/D5W 250 ML IV PRN ×2 (05:02→23:01)
[2017-07-20 07:24] VITALS: BP 135/89
[2017-07-20] MEDS: CLARITHROMYCIN 500 MG TABLET PO SCH ×2 (08:43→21:42)
[2017-07-20] MEDS: CALCIUM OYSTER SHELL 500 MG TABLET PO SCH ×3 (08:43→17:29)
[2017-07-20] MEDS: PRIMIDONE 50 MG TABLET PO SCH (08:43)
[2017-07-20] MEDS: AMOXICILLIN TRIHYDRATE 500 MG CAPSULE PO SCH ×2 (08:43→21:45)
[2017-07-20] MEDS: CHOLECALCIFEROL (VIT D3) 2,000 UNITS TABLET PO SCH (08:43)
[2017-07-20] MEDS: MONTELUKAST SODIUM 10 MG TABLET PO SCH (08:44)
[2017-07-20] MEDS: CARVEDILOL 6.25 MG TABLET PO SCH ×2 (08:44→21:45)
[2017-07-20] MEDS: BENZONATATE 100 MG CAPSULE PO SCH ×3 (08:44→21:41)
[2017-07-20] MEDS: SERTRALINE HCL 50 MG TABLET PO SCH (08:44)
[2017-07-20] MEDS: GABAPENTIN 100 MG CAPSULE PO SCH ×2 (08:44→21:45)
[2017-07-20] MEDS: OMEPRAZOLE 20 MG CAPSULE PO SCH ×2 (08:44→21:44)
[2017-07-20] MEDS: PredniSONE 20 MG TABLET PO SCH (08:45)
[2017-07-20 11:25] VITALS: BP 129/75
[2017-07-20] MEDS: OXYGEN THERAPY IH SCH ×2 (12:12→20:02)
[2017-07-20 15:33] VITALS: BP 156/75
[2017-07-20 20:01] VITALS: BP 139/80
[2017-07-20] MEDS: MIRTAZAPINE 15 MG TABLET PO SCH (21:45)
[2017-07-21 00:03] VITALS: BP 114/81
[2017-07-21] MEDS: ALBUTEROL SULFATE 2.5 MG/0.5 ML NEB SOLUTION NEB SCH ×6 (03:46→22:53)
[2017-07-21] MEDS: IPRATROPIUM BROMIDE 0.5 MG/2.5 ML NEB SOLUTION NEB SCH ×6 (03:47→22:53)
[2017-07-21 05:02] VITALS: BP 133/88
[2017-07-21 06:58] LABS: BASOPHILS # (AUTO) 0.01 K/uL (0.00-0.20); BASOPHILS % (AUTO) 0.2 % (0.0-2.0); EOSINOPHILS # (AUTO) 0.07 K/uL (0.00-0.70); EOSINOPHILS % (AUTO) 1.08 % (1.0-6.0); HEMATOCRIT 33.6 % (41-53); HEMOGLOBIN 10.5 g/dL (13.5-17.5); LYMPHOCYTES # (AUTO) 1.3 K/uL (1.0-4.8); LYMPHOCYTES % (AUTO) 19.3 % (22.0-44.0); MEAN CORPUSCULAR HEMOGLOBIN 23.6 pg (26.0-34.0); MEAN CORPUSCULAR HGB CONC 31.2 G/dL (31.0-37.0); MEAN CORPUSCULAR VOLUME 76 fL (80-100); MONOCYTES # (AUTO) 0.8 K/uL (0.1-1.0); MONOCYTES % (AUTO) 11.9 % (2.0-9.0); NEUTROPHILS # (AUTO) 4.4 K/uL (1.8-7.7); NEUTROPHILS % (AUTO) 67.5 % (40.0-70.0); PLATELET COUNT (AUTO) 163 K/uL (150-450); RED BLOOD CELL COUNT(AUTO) 4.45 MIL/uL (4.50-5.90); RED CELL DISTRIBUTION WIDTH 24.3 % (11.5-14.5); WHITE BLOOD COUNT (AUTO) 6.6 K/uL (4.5-11.0)
[2017-07-21 07:57] VITALS: BP 139/75
[2017-07-21] MEDS: OXYGEN THERAPY IH SCH ×2 (08:53→20:15)
[2017-07-21] MEDS: CHOLECALCIFEROL (VIT D3) 2,000 UNITS TABLET PO SCH (08:54)
[2017-07-21] MEDS: CLARITHROMYCIN 500 MG TABLET PO SCH ×2 (08:54→20:16)
[2017-07-21] MEDS: CARVEDILOL 6.25 MG TABLET PO SCH ×2 (08:54→20:17)
[2017-07-21] MEDS: OMEPRAZOLE 20 MG CAPSULE PO SCH ×2 (08:54→20:17)
[2017-07-21] MEDS: SERTRALINE HCL 50 MG TABLET PO SCH (08:54)
[2017-07-21] MEDS: PredniSONE 20 MG TABLET PO SCH (08:54)
[2017-07-21] MEDS: BENZONATATE 100 MG CAPSULE PO SCH ×3 (08:54→20:17)
[2017-07-21] MEDS: CALCIUM OYSTER SHELL 500 MG TABLET PO SCH ×3 (08:54→17:38)
[2017-07-21] MEDS: MONTELUKAST SODIUM 10 MG TABLET PO SCH (08:55)
[2017-07-21] MEDS: PRIMIDONE 50 MG TABLET PO SCH (08:55)
[2017-07-21] MEDS: AMOXICILLIN TRIHYDRATE 500 MG CAPSULE PO SCH ×2 (08:55→20:16)
[2017-07-21] MEDS: GABAPENTIN 100 MG CAPSULE PO SCH ×2 (08:55→20:17)
[2017-07-21 09:04] LABS: RBC MORPHOLOGY COMMENT DIMORPHIC RBC
[2017-07-21 11:45] VITALS: BP 114/61
[2017-07-21] MEDS: HEPARIN SODIUM,PORCINE 5,000 UNITS/ML VIAL IVP PRN (15:31)
[2017-07-21 16:19] VITALS: BP 129/67
[2017-07-21 20:07] VITALS: BP 123/70
[2017-07-21] MEDS: MIRTAZAPINE 15 MG TABLET PO SCH (20:17)
[2017-07-21] MEDS: HEPARIN SODIUM 25000 UNITS/D5W 250 ML IV PRN (22:52)
[2017-07-22] VITALS (7 sets, daily range): BP systolic 106–128; BP diastolic 55–97
[2017-07-22] MEDS: IPRATROPIUM BROMIDE 0.5 MG/2.5 ML NEB SOLUTION NEB SCH ×6 (03:51→23:07)
[2017-07-22] MEDS: ALBUTEROL SULFATE 2.5 MG/0.5 ML NEB SOLUTION NEB SCH ×6 (03:51→23:07)
[2017-07-22] MEDS: HEPARIN SODIUM 25000 UNITS/D5W 250 ML IV PRN ×3 (03:55→20:43)
[2017-07-22 06:13] LABS: BASOPHILS % (AUTO) 0.3 % (0.0-2.0); EOSINOPHILS % (AUTO) 0.4 % (1.0-6.0); HEMATOCRIT 33.5 % (41-53); HEMOGLOBIN 10.7 g/dL (13.5-17.5); LYMPHOCYTES # (AUTO) 1.2 K/uL (1.0-4.8); LYMPHOCYTES % (AUTO) 16.6 % (22.0-44.0); MEAN CORPUSCULAR HEMOGLOBIN 24.2 pg (26.0-34.0); MEAN CORPUSCULAR HGB CONC 31.9 G/dL (31.0-37.0); MEAN CORPUSCULAR VOLUME 76 fL (80-100); MONOCYTES # (AUTO) 0.9 K/uL (0.1-1.0); MONOCYTES % (AUTO) 11.8 % (2.0-9.0); NEUTROPHILS # (AUTO) 5.2 K/uL (1.8-7.7); NEUTROPHILS % (AUTO) 70.9 % (40.0-70.0); PLATELET COUNT (AUTO) 160 K/uL (150-450); RED BLOOD CELL COUNT(AUTO) 4.42 MIL/uL (4.50-5.90); RED CELL DISTRIBUTION WIDTH 25.5 % (11.5-14.5); WHITE BLOOD COUNT (AUTO) 7.3 K/uL (4.5-11.0)
[2017-07-22] MEDS: CLARITHROMYCIN 500 MG TABLET PO SCH ×2 (08:49→20:43)
[2017-07-22] MEDS: CALCIUM OYSTER SHELL 500 MG TABLET PO SCH ×3 (08:50→17:09)
[2017-07-22] MEDS: GABAPENTIN 100 MG CAPSULE PO SCH ×2 (08:50→20:45)
[2017-07-22] MEDS: PRIMIDONE 50 MG TABLET PO SCH (08:50)
[2017-07-22] MEDS: AMOXICILLIN TRIHYDRATE 500 MG CAPSULE PO SCH ×2 (08:50→20:44)
[2017-07-22] MEDS: OMEPRAZOLE 20 MG CAPSULE PO SCH ×2 (08:51→20:44)
[2017-07-22] MEDS: MONTELUKAST SODIUM 10 MG TABLET PO SCH (08:51)
[2017-07-22] MEDS: BENZONATATE 100 MG CAPSULE PO SCH ×3 (08:51→20:43)
[2017-07-22] MEDS: PredniSONE 20 MG TABLET PO SCH (08:51)
[2017-07-22] MEDS: CHOLECALCIFEROL (VIT D3) 2,000 UNITS TABLET PO SCH (08:51)
[2017-07-22] MEDS: CARVEDILOL 6.25 MG TABLET PO SCH ×2 (08:51→20:45)
[2017-07-22] MEDS: SERTRALINE HCL 50 MG TABLET PO SCH (08:51)
[2017-07-22] MEDS: OXYGEN THERAPY IH SCH ×2 (08:52→19:46)
[2017-07-22] MEDS: WARFARIN SODIUM 5 MG TABLET PO ONE ×2 (16:35→17:09)
[2017-07-22] MEDS: HEPARIN SODIUM,PORCINE 5,000 UNITS/ML VIAL IVP PRN (16:53)
[2017-07-22] MEDS: MIRTAZAPINE 15 MG TABLET PO SCH (20:45)
[2017-07-23] MEDS: IPRATROPIUM BROMIDE 0.5 MG/2.5 ML NEB SOLUTION NEB SCH ×6 (03:34→23:26)
[2017-07-23] MEDS: ALBUTEROL SULFATE 2.5 MG/0.5 ML NEB SOLUTION NEB SCH ×6 (03:34→23:26)
[2017-07-23 04:08] VITALS: BP 111/59
[2017-07-23 06:30] LABS: BASOPHILS # (AUTO) 0.01 K/uL (0.00-0.20); BASOPHILS % (AUTO) 0.1 % (0.0-2.0); EOSINOPHILS # (AUTO) 0.04 K/uL (0.00-0.70); EOSINOPHILS % (AUTO) 0.44 % (1.0-6.0); HEMOGLOBIN 11.1 g/dL (13.5-17.5); LYMPHOCYTES # (AUTO) 1.2 K/uL (1.0-4.8); LYMPHOCYTES % (AUTO) 13.9 % (22.0-44.0); MEAN CORPUSCULAR HEMOGLOBIN 23.5 pg (26.0-34.0); MEAN CORPUSCULAR HGB CONC 30.9 G/dL (31.0-37.0); MEAN CORPUSCULAR VOLUME 76 fL (80-100); MONOCYTES # (AUTO) 0.9 K/uL (0.1-1.0); MONOCYTES % (AUTO) 10.5 % (2.0-9.0); NEUTROPHILS # (AUTO) 6.3 K/uL (1.8-7.7); NEUTROPHILS % (AUTO) 75.1 % (40.0-70.0); PLATELET COUNT (AUTO) 158 K/uL (150-450); RED BLOOD CELL COUNT(AUTO) 4.72 MIL/uL (4.50-5.90); RED CELL DISTRIBUTION WIDTH 26.1 % (11.5-14.5); WHITE BLOOD COUNT (AUTO) 8.4 K/uL (4.5-11.0)
[2017-07-23] MEDS: ALENDRONATE SODIUM 70 MG TABLET PO SCH (06:32)
[2017-07-23 06:34] LABS: INR 1.2 (0.9-1.1); PROTHROMBIN TIME 12.2 SEC (9.4-11.6)
[2017-07-23 07:33] VITALS: BP 116/69
[2017-07-23] MEDS: CALCIUM OYSTER SHELL 500 MG TABLET PO SCH ×3 (08:34→18:03)
[2017-07-23] MEDS: CLARITHROMYCIN 500 MG TABLET PO SCH ×2 (08:35→20:07)
[2017-07-23] MEDS: CARVEDILOL 6.25 MG TABLET PO SCH ×2 (08:36→20:06)
[2017-07-23] MEDS: PredniSONE 20 MG TABLET PO SCH (08:36)
[2017-07-23] MEDS: OMEPRAZOLE 20 MG CAPSULE PO SCH ×2 (08:37→20:06)
[2017-07-23] MEDS: AMOXICILLIN TRIHYDRATE 500 MG CAPSULE PO SCH ×2 (08:38→20:06)
[2017-07-23] MEDS: SERTRALINE HCL 50 MG TABLET PO SCH (08:38)
[2017-07-23] MEDS: MONTELUKAST SODIUM 10 MG TABLET PO SCH (08:38)
[2017-07-23] MEDS: BENZONATATE 100 MG CAPSULE PO SCH ×3 (08:39→20:06)
[2017-07-23] MEDS: PRIMIDONE 50 MG TABLET PO SCH (08:39)
[2017-07-23] MEDS: CHOLECALCIFEROL (VIT D3) 2,000 UNITS TABLET PO SCH (08:40)
[2017-07-23] MEDS: GABAPENTIN 100 MG CAPSULE PO SCH ×2 (08:40→20:07)
[2017-07-23] MEDS: OXYGEN THERAPY IH SCH ×2 (08:44→20:07)
[2017-07-23] MEDS: HEPARIN SODIUM 25000 UNITS/D5W 250 ML IV PRN ×2 (09:58→22:24)
[2017-07-23 10:01] LABS: RBC MORPHOLOGY COMMENT DIMORPHIC RBC
[2017-07-23 11:42] VITALS: BP 123/72
[2017-07-23 15:40] VITALS: BP 127/81
[2017-07-23] MEDS ORDERED: WARFARIN SODIUM 5 MG TABLET PO ONE (17:00)
[2017-07-23] MEDS: MIRTAZAPINE 15 MG TABLET PO SCH (20:07)
[2017-07-23 20:16] VITALS: BP 110/78
[2017-07-23] MEDS ORDERED: SODIUM CHLORIDE 0.9% 250 ML IV ONE (22:54)
[2017-07-24 00:04] VITALS: BP 118/75
[2017-07-24] MEDS: ALBUTEROL SULFATE 2.5 MG/0.5 ML NEB SOLUTION NEB SCH ×5 (02:46→19:10)
[2017-07-24] MEDS: IPRATROPIUM BROMIDE 0.5 MG/2.5 ML NEB SOLUTION NEB SCH ×5 (02:46→19:10)
[2017-07-24 05:07] VITALS: BP 121/74
[2017-07-24 07:05] LABS: BASOPHILS % (AUTO) 0.3 % (0.0-2.0); EOSINOPHILS % (AUTO) 0.4 % (1.0-6.0); HEMATOCRIT 35.7 % (41-53); HEMOGLOBIN 11.3 g/dL (13.5-17.5); LYMPHOCYTES # (AUTO) 1.4 K/uL (1.0-4.8); LYMPHOCYTES % (AUTO) 14.8 % (22.0-44.0); MEAN CORPUSCULAR HGB CONC 31.6 G/dL (31.0-37.0); MEAN CORPUSCULAR VOLUME 76 fL (80-100); MONOCYTES # (AUTO) 0.9 K/uL (0.1-1.0); MONOCYTES % (AUTO) 9.6 % (2.0-9.0); NEUTROPHILS % (AUTO) 74.9 % (40.0-70.0); PLATELET COUNT (AUTO) 149 K/uL (150-450); RED CELL DISTRIBUTION WIDTH 26.6 % (11.5-14.5); WHITE BLOOD COUNT (AUTO) 9.4 K/uL (4.5-11.0)
[2017-07-24] MEDS: OXYGEN THERAPY IH SCH (07:33)
[2017-07-24 07:37] LABS: INR 3.4 (0.9-1.1); PROTHROMBIN TIME 36.2 SEC (9.4-11.6)
[2017-07-24 07:41] VITALS: BP 120/75
[2017-07-24] MEDS: CALCIUM OYSTER SHELL 500 MG TABLET PO SCH ×2 (08:15→12:47)
[2017-07-24] MEDS: CARVEDILOL 6.25 MG TABLET PO SCH (08:15)
[2017-07-24] MEDS: GABAPENTIN 100 MG CAPSULE PO SCH (08:19)
[2017-07-24] MEDS: PRIMIDONE 50 MG TABLET PO SCH (08:19)
[2017-07-24] MEDS: PredniSONE 20 MG TABLET PO SCH (08:19)
[2017-07-24] MEDS: MONTELUKAST SODIUM 10 MG TABLET PO SCH (08:19)
[2017-07-24] MEDS: CHOLECALCIFEROL (VIT D3) 2,000 UNITS TABLET PO SCH (08:20)
[2017-07-24] MEDS: BENZONATATE 100 MG CAPSULE PO SCH ×2 (08:20→16:00)
[2017-07-24 08:52] LABS: RBC MORPHOLOGY COMMENT ABNORMAL RBC MORPH
[2017-07-24 11:31] VITALS: BP 124/70
[2017-07-24] MEDS: SERTRALINE HCL 50 MG TABLET PO SCH (12:47)
[2017-07-24 15:12] VITALS: BP 118/67
[2017-07-24] MEDS ORDERED: WARFARIN SODIUM 2.5 MG TABLET PO ONE (17:00)
[2017-07-24] MEDS ORDERED: PRED10 PO (18:55)
[2017-07-24] MEDS ORDERED: PRED1 PO ×2 (18:55)
[2017-07-24] MEDS ORDERED: WARF2.5 PO (18:56)
[2017-07-25] MEDS ORDERED: WARFARIN SODIUM 2.5 MG TABLET PO SCH (17:00)
== END 2017-07-24 19:45 | disposition home or self-care (01) | DRG 190 ==
LOC: EMS 00:44 → 5S 03:54
PROVIDERS: ADMIT Internal Medicine; ATTEND Internal Medicine
PROC: 0DB68ZX Excision of Stomach, Via Natural or Artificial Opening Endoscopic, Diagnostic (ICD-10-PCS; principal; 2017-07-11 12:00)
PROC: 0DBK8ZX Excision of Ascending Colon, Via Natural or Artificial Opening Endoscopic, Diagnostic (ICD-10-PCS; 2017-07-12)
PROC: B246ZZ4 Ultrasonography of Right and Left Heart, Transesophageal (ICD-10-PCS; 2017-07-13)
PROC: B24CZZ4 Ultrasonography of Pericardium, Transesophageal (ICD-10-PCS; 2017-07-13)
DX: J44.1 Chronic obstructive pulmonary disease with (acute) exacerbation (principal); I26.99 Other pulmonary embolism without acute cor pulmonale; E43 Unspecified severe protein-calorie malnutrition; E86.0 Dehydration; I48.2 Chronic atrial fibrillation; N39.0 Urinary tract infection, site not specified; K31.84 Gastroparesis; R62.7 Adult failure to thrive; F32.9 Major depressive disorder, single episode, unspecified; I10 Essential (primary) hypertension; D50.9 Iron deficiency anemia, unspecified; F41.9 Anxiety disorder, unspecified; K21.9 Gastro-esophageal reflux disease without esophagitis; D12.2 Benign neoplasm of ascending colon; K29.70 Gastritis, unspecified, without bleeding; E78.00 Pure hypercholesterolemia, unspecified; K43.9 Ventral hernia without obstruction or gangrene; K59.00 Constipation, unspecified; K64.8 Other hemorrhoids; M81.0 Age-related osteoporosis without current pathological fracture; R29.6 Repeated falls; M19.90 Unspecified osteoarthritis, unspecified site; Z87.891 Personal history of nicotine dependence; Z68.23 Body mass index [BMI] 23.0-23.9, adult; Z79.899 Other long term (current) drug therapy; Z79.82 Long term (current) use of aspirin; Z82.49 Family history of ischemic heart disease and other diseases of the circulatory system
CPT/HCPCS: 51702; 71275; 74177; 75574; 82270; 82271; 82607; 82746; 82805; 82948; 82962; 83540; 83550; 83735; 84100; 84145; 84443; 85007; 86140; 87040; 88305; 88312; 90471; 93005; 93306; 93312; 93970; 94640; 94667; 94668; 96374; 97110; 97116; 97162; 97165; 97530; 97535; 99285; J0456; J0696; J1644; J1650; J1756; J2250; J2405; J2704; J2920; J2930; J3010; J3301; J3490; J7030; J7040; J7042; J7050

== ENCOUNTER → 2017-09-14 | Outpatient (CLI) | payer MEDICARE, OTHER ==
[~2017-09-14] MED LIST changes: +ALBU8.5H8 IH; +ALEN70TA48 PO; +BUDE10.2 IH; +CALC-1038 PO; +CHOL200016 PO; -DABI75CA3 PO; -DILT30TA38 PO; +DILT60SR PO; -DOCU100C19 PO; -FLUT16H NASAL; -FLUT1DIS3 IH; +FURO20 PO; +HYDR-309 PO; +IBUP-2070 PO; +LORA0.5T2 PO; +MIRT15 PO; +PRED1 PO; +PRED10 PO; +PRED20 PO; +PRIM50 PO; -TAMS0.4C32 PO; -TIOT185 IH; +WARF2.5 PO
[2017-09-14 15:07] LABS: ALANINE AMINOTRANSFERASE 24 U/L (12-78); ALBUMIN 3.2 g/dL (3.4-5.0); ANION GAP 7 mmol/L (8-16); ASPARTATE AMINOTRANSFERASE 20 U/L (15-37); BILIRUBIN,TOTAL 0.2 mg/dL (0.1-1.0); CALCIUM, TOTAL 9.1 mg/dL (8.8-10.5); CARBON DIOXIDE 30 mmol/L (22-29); CHLORIDE 102 mmol/L (98-107); CREATININE 0.87 mg/dL (0.60-1.30); GLOMERULAR FILTR. RATE CALC > 60 mL/min (>60); POTASSIUM 4.7 mmol/L (3.5-5.1); SODIUM SERUM 139 mmol/L (136-145); UREA NITROGEN, BLOOD 10 mg/dL (7-18)
== END | disposition home or self-care (01) ==
LOC: LABPV 12:57
PROVIDERS: ATTEND Internal Medicine
DX: I11.9 Hypertensive heart disease without heart failure (principal)

== ENCOUNTER → 2017-09-20 | Outpatient (CLI) | payer MEDICARE, OTHER ==
[~2017-09-20] MED LIST changes: +GADOBUTROL 1 MMOL/ML 10 ML VIAL IVP ONE
== END | disposition home or self-care (01) ==
LOC: RADMN 13:14
PROVIDERS: ATTEND Internal Medicine
DX: S22.070G Wedge compression fracture of T9-T10 vertebra, subsequent encounter for fracture with delayed healing (principal); S32.010G Wedge compression fracture of first lumbar vertebra, subsequent encounter for fracture with delayed healing; M51.84 Other intervertebral disc disorders, thoracic region; M47.816 Spondylosis without myelopathy or radiculopathy, lumbar region; M48.061 Spinal stenosis, lumbar region without neurogenic claudication; X58.XXXD Exposure to other specified factors, subsequent encounter; M43.16 Spondylolisthesis, lumbar region
CPT/HCPCS: 72157; 72158; A9585

== ENCOUNTER 2017-10-06 09:33 | Inpatient (IN) | payer MEDICARE, OTHER ==
[~2017-10-06] VITALS: Ht 160 cm; Wt 63.1 kg
[~2017-10-06 09:33] MED LIST changes: -GADOBUTROL 1 MMOL/ML 10 ML VIAL IVP ONE; -PRED20 PO
[2017-10-06 10:05] LABS: BASOPHILS % (AUTO) 0.1 % (0.0-2.0); EOSINOPHILS % (AUTO) 1.5 % (1.0-6.0); HEMATOCRIT 39.9 % (41-53); HEMOGLOBIN 12.8 g/dL (13.5-17.5); LYMPHOCYTES % (AUTO) 7.1 % (22.0-44.0); MEAN CORPUSCULAR HEMOGLOBIN 24.8 pg (26.0-34.0); MEAN CORPUSCULAR HGB CONC 32.1 G/dL (31.0-37.0); MEAN CORPUSCULAR VOLUME 77 fL (80-100); MONOCYTES # (AUTO) 1.3 K/uL (0.1-1.0); MONOCYTES % (AUTO) 8.8 % (2.0-9.0); NEUTROPHILS # (AUTO) 12.1 K/uL (1.8-7.7); NEUTROPHILS % (AUTO) 82.5 % (40.0-70.0); PLATELET COUNT (AUTO) 295 K/uL (150-450); RED BLOOD CELL COUNT(AUTO) 5.17 MIL/uL (4.50-5.90); RED CELL DISTRIBUTION WIDTH 20.1 % (11.5-14.5); WHITE BLOOD COUNT (AUTO) 14.7 K/uL (4.5-11.0)
[2017-10-06 10:17] LABS: ANION GAP 7 mmol/L (8-16); CARBON DIOXIDE 34 mmol/L (22-29); CHLORIDE 99 mmol/L (98-107); CREATININE 0.94 mg/dL (0.60-1.30); GLOMERULAR FILTR. RATE CALC > 60 mL/min (>60); POTASSIUM 3.2 mmol/L (3.5-5.1); SODIUM SERUM 140 mmol/L (136-145); UREA NITROGEN, BLOOD 10 mg/dL (7-18)
[2017-10-06 10:21] LABS: PROTHROMBIN TIME 54.8 SEC (9.4-11.6)
[2017-10-06 10:24] LABS: INR 5.2 (0.9-1.1)
[2017-10-06 10:35] LABS: RBC MORPHOLOGY COMMENT ABNORMAL RBC MORPH
[2017-10-06 10:39] LABS: B-TYPE NATRIURETIC PEPTIDE 71 pg/mL (0-100)
[2017-10-06 10:46] LABS: ALANINE AMINOTRANSFERASE 35 U/L (12-78); ALBUMIN 3.6 g/dL (3.4-5.0); ASPARTATE AMINOTRANSFERASE 32 U/L (15-37); BILIRUBIN,TOTAL 0.3 mg/dL (0.1-1.0); CREATINE KINASE MB 8.7 ng/mL (0-5); CREATINE KINASE, TOTAL 211 U/L (39-308); TOTAL PROTEIN, SERUM 8.1 g/dL (6.4-8.2)
[2017-10-06 11:10] LABS: INFLUENZA TYPE B NEGATIVE FOR TYPE B (NEGATIVE)
[2017-10-06] MEDS ORDERED: ALBUTEROL SULFATE 2.5 MG/0.5 ML NEB SOLUTION NEB ONE (11:15)
[2017-10-06] MEDS ORDERED: IPRATROPIUM BROMIDE 0.5 MG/2.5 ML NEB SOLUTION NEB ONE (11:15)
[2017-10-06] MEDS ORDERED: MethylPREDNISolone SOD SUCC 125 MG/2 ML VIAL IVP ONE (11:15)
[2017-10-06] MEDS ORDERED: ONDANSETRON HCL 4 MG/2 ML VIAL IVP PRN (11:45)
[2017-10-06] MEDS ORDERED: 0.9% SODIUM CHLORIDE 10 ML SYRINGE IVP PRN (11:45)
[2017-10-06] MEDS ORDERED: ACETAMINOPHEN 325 MG TABLET PO PRN (11:45)
[2017-10-06] MEDS ORDERED: LEVOFLOXACIN 500 MG/D5% WATER 100 ML IV ONE (11:45)
[2017-10-06 14:11] VITALS: BP 151/73
[2017-10-06] MEDS ORDERED: PANTOPRAZOLE SODIUM 40 MG/VIAL IVP ONE (14:15)
[2017-10-06] MEDS ORDERED: ALBUTEROL SULFATE 2.5 MG/0.5 ML NEB SOLUTION NEB SCH ×2 (15:00)
[2017-10-06] MEDS ORDERED: IPRATROPIUM BROMIDE 0.5 MG/2.5 ML NEB SOLUTION NEB SCH ×2 (15:00)
[2017-10-06 15:41] VITALS: BP 146/89
[2017-10-06] MEDS: MethylPREDNISolone SOD SUCC 125 MG/2 ML VIAL IVP SCH ×2 (16:31→23:02)
[2017-10-06] MEDS ORDERED: INFLUENZA VIRUS VACCINE QVS 2017-18 (3YR+)/PF 60 MCG/0.5 ML SYRINGE IM ONE (17:00)
[2017-10-06] MEDS: ALBUTEROL SULFATE 2.5 MG/0.5 ML NEB SOLUTION NEB SCH ×2 (17:44→23:00)
[2017-10-06] MEDS: IPRATROPIUM BROMIDE 0.5 MG/2.5 ML NEB SOLUTION NEB SCH ×2 (17:44→23:00)
[2017-10-06] MEDS ORDERED: HYDROCODONE/ACETAMINOPHEN 5-325 MG TABLET PO PRN (18:00)
[2017-10-06] MEDS: PROMETHAZINE HCL/CODEINE 6.25-10MG/5ML SYRUP UDCUP PO PRN ×2 (18:05→22:45)
[2017-10-06] MEDS: ALBUTEROL SULFATE 2.5 MG/0.5 ML NEB SOLUTION NEB PRN ×2 (19:09→21:48)
[2017-10-06] MEDS: IPRATROPIUM BROMIDE 0.5 MG/2.5 ML NEB SOLUTION NEB PRN ×2 (19:10→21:48)
[2017-10-06 20:18] VITALS: BP 145/83
[2017-10-06] MEDS ORDERED: 0.9% SODIUM CHLORIDE 5 ML NEB SOLUTION NEB ONE (21:44)
[2017-10-06] MEDS ORDERED: POTASSIUM CHL 10 MEQ/WATER 50 ML IV PRN (22:30)
[2017-10-06] MEDS ORDERED: POTASSIUM CHLORIDE 20 MEQ ER TABLET PO PRN (22:30)
[2017-10-06] MEDS: METOPROLOL TARTRATE 5 MG/5 ML VIAL IVP PRN (22:46)
[2017-10-06 23:57] VITALS: BP 136/94
[2017-10-07] MEDS: ALBUTEROL SULFATE 2.5 MG/0.5 ML NEB SOLUTION NEB SCH ×6 (02:39→23:00)
[2017-10-07] MEDS: IPRATROPIUM BROMIDE 0.5 MG/2.5 ML NEB SOLUTION NEB SCH ×6 (02:39→23:00)
[2017-10-07] MEDS: PROMETHAZINE HCL/CODEINE 6.25-10MG/5ML SYRUP UDCUP PO PRN ×3 (03:40→17:07)
[2017-10-07 04:48] VITALS: BP 132/84
[2017-10-07 07:02] LABS: BASOPHILS % (AUTO) 0.3 % (0.0-2.0); EOSINOPHILS % (AUTO) 0 % (1.0-6.0); HEMOGLOBIN 11.4 g/dL (13.5-17.5); LYMPHOCYTES # (AUTO) 0.7 K/uL (1.0-4.8); MEAN CORPUSCULAR HEMOGLOBIN 24.9 pg (26.0-34.0); MEAN CORPUSCULAR HGB CONC 32.6 G/dL (31.0-37.0); MEAN CORPUSCULAR VOLUME 76 fL (80-100); MONOCYTES # (AUTO) 0.2 K/uL (0.1-1.0); NEUTROPHILS # (AUTO) 4.3 K/uL (1.8-7.7); NEUTROPHILS % (AUTO) 83.7 % (40.0-70.0); PLATELET COUNT (AUTO) 272 K/uL (150-450); RED BLOOD CELL COUNT(AUTO) 4.58 MIL/uL (4.50-5.90); RED CELL DISTRIBUTION WIDTH 20.4 % (11.5-14.5); WHITE BLOOD COUNT (AUTO) 5.2 K/uL (4.5-11.0)
[2017-10-07 07:08] VITALS: BP 147/86
[2017-10-07 07:33] LABS: ALANINE AMINOTRANSFERASE 33 U/L (12-78); ALBUMIN 3.1 g/dL (3.4-5.0); ANION GAP 7 mmol/L (8-16); ASPARTATE AMINOTRANSFERASE 29 U/L (15-37); BILIRUBIN,TOTAL 0.2 mg/dL (0.1-1.0); CALCIUM, TOTAL 8.7 mg/dL (8.8-10.5); CARBON DIOXIDE 32 mmol/L (22-29); CHLORIDE 101 mmol/L (98-107); CREATININE 0.86 mg/dL (0.60-1.30); GLOMERULAR FILTR. RATE CALC > 60 mL/min (>60); POTASSIUM 4.6 mmol/L (3.5-5.1); SODIUM SERUM 140 mmol/L (136-145); TOTAL PROTEIN, SERUM 7.2 g/dL (6.4-8.2); UREA NITROGEN, BLOOD 18 mg/dL (7-18)
[2017-10-07] MEDS: MethylPREDNISolone SOD SUCC 125 MG/2 ML VIAL IVP SCH ×2 (08:04→15:04)
[2017-10-07 09:52] LABS: RBC MORPHOLOGY COMMENT ABNORMAL RBC MORPH
[2017-10-07 11:24] VITALS: BP 132/71
[2017-10-07] MEDS ORDERED: HYDROCODONE/ACETAMINOPHEN 5-325 MG TABLET PO PRN (12:30)
[2017-10-07] MEDS ORDERED: WARFARIN SODIUM 5 MG TABLET PO ONE (12:30)
[2017-10-07 13:05] LABS: PROTHROMBIN TIME 43.7 SEC (9.4-11.6)
[2017-10-07 13:10] LABS: INR 4.1 (0.9-1.1)
[2017-10-07] MEDS: LORazepam 0.5 MG TABLET PO PRN (14:08)
[2017-10-07] MEDS: METOPROLOL TARTRATE 5 MG/5 ML VIAL IVP PRN (14:15)
[2017-10-07 14:18] VITALS: BP 164/66
[2017-10-07] MEDS: ALBUTEROL SULFATE HFA 90 MCG/PUFF 8 GM INHALER IH SCH ×2 (15:06→20:27)
[2017-10-07] MEDS: BENZONATATE 100 MG CAPSULE PO PRN (15:08)
[2017-10-07] MEDS: ACETYLCYSTEINE 20% 200 MG/ML 4 ML NEB SOLUTION NEB SCH ×2 (16:00→18:50)
[2017-10-07] MEDS: DILTIAZEM HCL 60 MG SR CAPSULE PO SCH ×2 (18:07→20:28)
[2017-10-07] MEDS: OXYGEN THERAPY IH SCH (18:49)
[2017-10-07 19:22] VITALS: BP 149/90
[2017-10-07] MEDS: MIRTAZAPINE 15 MG TABLET PO SCH (20:28)
[2017-10-07] MEDS: FUROSEMIDE 20 MG TABLET PO SCH (20:28)
[2017-10-07] MEDS: BUDESONIDE/FORMOTEROL FUMARATE 160-4.5 MCG/PUFF 6.9 GM INHALER IH SCH (20:28)
[2017-10-07] MEDS: GABAPENTIN 100 MG CAPSULE PO SCH (20:28)
[2017-10-07] MEDS: OMEPRAZOLE 20 MG CAPSULE PO SCH (20:28)
[2017-10-07] MEDS: IPRATROPIUM BROMIDE 0.5 MG/2.5 ML NEB SOLUTION NEB PRN (23:13)
[2017-10-07] MEDS: ALBUTEROL SULFATE 2.5 MG/0.5 ML NEB SOLUTION NEB PRN (23:13)
[2017-10-07] MEDS ORDERED: IPRATROPIUM BROMIDE 0.5 MG/2.5 ML NEB SOLUTION NEB PRN (23:30)
[2017-10-07] MEDS ORDERED: ALBUTEROL SULFATE 2.5 MG/0.5 ML NEB SOLUTION NEB PRN (23:30)
[2017-10-07 23:59] VITALS: BP 126/76
[2017-10-08] MEDS: MethylPREDNISolone SOD SUCC 125 MG/2 ML VIAL IVP SCH ×4 (00:48→23:16)
[2017-10-08] MEDS: ALBUTEROL SULFATE HFA 90 MCG/PUFF 8 GM INHALER IH SCH ×7 (00:48→23:16)
[2017-10-08] MEDS: IPRATROPIUM BROMIDE 0.5 MG/2.5 ML NEB SOLUTION NEB SCH ×6 (03:05→22:40)
[2017-10-08] MEDS: ALBUTEROL SULFATE 2.5 MG/0.5 ML NEB SOLUTION NEB SCH ×6 (03:05→22:40)
[2017-10-08 03:58] VITALS: BP 122/77
[2017-10-08 06:11] LABS: PROTHROMBIN TIME 44.5 SEC (9.4-11.6)
[2017-10-08 06:14] LABS: INR 4.2 (0.9-1.1)
[2017-10-08] MEDS ORDERED: ALENDRONATE SODIUM 70 MG TABLET PO SCH (06:30)
[2017-10-08 07:07] VITALS: BP 120/76
[2017-10-08] MEDS: OXYGEN THERAPY IH SCH ×2 (08:06→19:34)
[2017-10-08] MEDS: CHOLECALCIFEROL (VIT D3) 1,000 UNITS TABLET PO SCH (08:07)
[2017-10-08] MEDS: DIGOXIN 125 MCG TABLET PO SCH (08:07)
[2017-10-08] MEDS: FUROSEMIDE 20 MG TABLET PO SCH ×2 (08:07→20:53)
[2017-10-08] MEDS: BUDESONIDE/FORMOTEROL FUMARATE 160-4.5 MCG/PUFF 6.9 GM INHALER IH SCH ×2 (08:07→20:54)
[2017-10-08] MEDS: DILTIAZEM HCL 60 MG SR CAPSULE PO SCH ×3 (08:07→20:54)
[2017-10-08] MEDS: GABAPENTIN 100 MG CAPSULE PO SCH ×2 (08:07→20:53)
[2017-10-08] MEDS: OMEPRAZOLE 20 MG CAPSULE PO SCH ×2 (08:08→20:53)
[2017-10-08] MEDS: MONTELUKAST SODIUM 10 MG TABLET PO SCH (08:08)
[2017-10-08] MEDS: SERTRALINE HCL 50 MG TABLET PO SCH (08:08)
[2017-10-08] MEDS: BENZONATATE 100 MG CAPSULE PO PRN (09:58)
[2017-10-08] MEDS: PROMETHAZINE HCL/CODEINE 6.25-10MG/5ML SYRUP UDCUP PO PRN (09:59)
[2017-10-08] MEDS: LORazepam 0.5 MG TABLET PO PRN ×3 (09:59→23:15)
[2017-10-08] MEDS: ACETYLCYSTEINE 20% 200 MG/ML 4 ML NEB SOLUTION NEB SCH ×3 (10:48→22:40)
[2017-10-08 10:56] VITALS: BP 127/89
[2017-10-08 15:08] VITALS: BP 126/74
[2017-10-08] MEDS ORDERED: WARFARIN SODIUM 2.5 MG TABLET PO SCH (17:00)
[2017-10-08] MEDS ORDERED: WARFARIN SODIUM 1 MG TABLET PO ONE (17:15)
[2017-10-08 19:50] VITALS: BP 163/88
[2017-10-08] MEDS: MIRTAZAPINE 15 MG TABLET PO SCH (20:54)
[2017-10-08 23:19] VITALS: BP 150/89
[2017-10-09] MEDS: ALBUTEROL SULFATE 2.5 MG/0.5 ML NEB SOLUTION NEB SCH ×6 (03:00→23:22)
[2017-10-09] MEDS: IPRATROPIUM BROMIDE 0.5 MG/2.5 ML NEB SOLUTION NEB SCH ×6 (03:00→23:22)
[2017-10-09 04:36] VITALS: BP 124/71
[2017-10-09] MEDS: ALBUTEROL SULFATE HFA 90 MCG/PUFF 8 GM INHALER IH SCH ×6 (05:06→23:35)
[2017-10-09 06:48] LABS: PROTHROMBIN TIME 62.3 SEC (9.4-11.6)
[2017-10-09] MEDS: ACETYLCYSTEINE 20% 200 MG/ML 4 ML NEB SOLUTION NEB SCH ×3 (07:03→19:47)
[2017-10-09 07:09] LABS: INR 5.9 (0.9-1.1)
[2017-10-09 08:27] VITALS: BP 159/79
[2017-10-09] MEDS: BUDESONIDE/FORMOTEROL FUMARATE 160-4.5 MCG/PUFF 6.9 GM INHALER IH SCH ×2 (08:57→20:03)
[2017-10-09] MEDS: DILTIAZEM HCL 60 MG SR CAPSULE PO SCH ×3 (08:57→20:03)
[2017-10-09] MEDS: MethylPREDNISolone SOD SUCC 125 MG/2 ML VIAL IVP SCH ×3 (08:57→23:34)
[2017-10-09] MEDS: GABAPENTIN 100 MG CAPSULE PO SCH ×2 (08:58→20:03)
[2017-10-09] MEDS: OMEPRAZOLE 20 MG CAPSULE PO SCH ×2 (08:58→20:03)
[2017-10-09] MEDS: DIGOXIN 125 MCG TABLET PO SCH (08:58)
[2017-10-09] MEDS: MONTELUKAST SODIUM 10 MG TABLET PO SCH (08:58)
[2017-10-09] MEDS: SERTRALINE HCL 50 MG TABLET PO SCH (08:58)
[2017-10-09] MEDS: CHOLECALCIFEROL (VIT D3) 1,000 UNITS TABLET PO SCH (08:58)
[2017-10-09] MEDS: FUROSEMIDE 20 MG TABLET PO SCH ×2 (08:58→20:03)
[2017-10-09] MEDS: OXYGEN THERAPY IH SCH ×2 (08:59→19:47)
[2017-10-09] MEDS: PROMETHAZINE HCL/CODEINE 6.25-10MG/5ML SYRUP UDCUP PO PRN ×2 (09:23→17:08)
[2017-10-09] MEDS: BENZONATATE 100 MG CAPSULE PO PRN (09:23)
[2017-10-09] MEDS: HYDROCODONE/ACETAMINOPHEN 5-325 MG TABLET PO PRN (09:23)
[2017-10-09 11:52] VITALS: BP 117/57
[2017-10-09] MEDS: BENZONATATE 100 MG CAPSULE PO SCH ×2 (17:09→23:35)
[2017-10-09] MEDS: MIRTAZAPINE 15 MG TABLET PO SCH (20:03)
[2017-10-09 20:10] VITALS: BP 155/95
[2017-10-10] VITALS (7 sets, daily range): BP systolic 118–143; BP diastolic 57–90
[2017-10-10] MEDS: IPRATROPIUM BROMIDE 0.5 MG/2.5 ML NEB SOLUTION NEB SCH ×6 (03:08→23:20)
[2017-10-10] MEDS: ALBUTEROL SULFATE 2.5 MG/0.5 ML NEB SOLUTION NEB SCH ×6 (03:08→23:21)
[2017-10-10] MEDS: ALBUTEROL SULFATE HFA 90 MCG/PUFF 8 GM INHALER IH SCH ×6 (03:48→23:02)
[2017-10-10 06:30] LABS: PROTHROMBIN TIME 42.6 SEC (9.4-11.6)
[2017-10-10] MEDS: OXYGEN THERAPY IH SCH ×2 (07:36→20:00)
[2017-10-10] MEDS: SERTRALINE HCL 50 MG TABLET PO SCH (08:02)
[2017-10-10] MEDS: MONTELUKAST SODIUM 10 MG TABLET PO SCH (08:02)
[2017-10-10] MEDS: BUDESONIDE/FORMOTEROL FUMARATE 160-4.5 MCG/PUFF 6.9 GM INHALER IH SCH ×2 (08:02→22:13)
[2017-10-10] MEDS: DIGOXIN 125 MCG TABLET PO SCH (08:02)
[2017-10-10] MEDS: OMEPRAZOLE 20 MG CAPSULE PO SCH ×2 (08:02→22:11)
[2017-10-10] MEDS: GABAPENTIN 100 MG CAPSULE PO SCH ×2 (08:02→22:10)
[2017-10-10] MEDS: DILTIAZEM HCL 60 MG SR CAPSULE PO SCH ×3 (08:02→22:12)
[2017-10-10] MEDS: FUROSEMIDE 20 MG TABLET PO SCH ×2 (08:02→22:11)
[2017-10-10] MEDS: CHOLECALCIFEROL (VIT D3) 1,000 UNITS TABLET PO SCH (08:02)
[2017-10-10] MEDS: MethylPREDNISolone SOD SUCC 125 MG/2 ML VIAL IVP SCH ×3 (08:03→23:02)
[2017-10-10] MEDS: BENZONATATE 100 MG CAPSULE PO SCH ×3 (08:03→23:02)
[2017-10-10] MEDS: HYDROCODONE/ACETAMINOPHEN 5-325 MG TABLET PO PRN ×2 (10:21→22:30)
[2017-10-10] MEDS: PROMETHAZINE HCL/CODEINE 6.25-10MG/5ML SYRUP UDCUP PO PRN (10:22)
[2017-10-10 10:37] LABS: EOSINOPHILS % (AUTO) 0 % (1.0-6.0); HEMATOCRIT 35.2 % (41-53); HEMOGLOBIN 11.1 g/dL (13.5-17.5); LYMPHOCYTES # (AUTO) 0.2 K/uL (1.0-4.8); LYMPHOCYTES % (AUTO) 2.1 % (22.0-44.0); MEAN CORPUSCULAR HEMOGLOBIN 24.8 pg (26.0-34.0); MEAN CORPUSCULAR HGB CONC 31.4 G/dL (31.0-37.0); MEAN CORPUSCULAR VOLUME 79 fL (80-100); MONOCYTES # (AUTO) 0.5 K/uL (0.1-1.0); MONOCYTES % (AUTO) 4.6 % (2.0-9.0); NEUTROPHILS # (AUTO) 10.6 K/uL (1.8-7.7); PLATELET COUNT (AUTO) 255 K/uL (150-450); RED BLOOD CELL COUNT(AUTO) 4.47 MIL/uL (4.50-5.90); RED CELL DISTRIBUTION WIDTH 20.3 % (11.5-14.5); WHITE BLOOD COUNT (AUTO) 11.4 K/uL (4.5-11.0)
[2017-10-10 10:38] LABS: NEUTROPHILS % (AUTO) 93.3 % (40.0-70.0)
[2017-10-10 10:48] LABS: ANION GAP 2 mmol/L (8-16); CALCIUM, TOTAL 8.3 mg/dL (8.8-10.5); CARBON DIOXIDE 37 mmol/L (22-29); CHLORIDE 105 mmol/L (98-107); CREATININE 0.72 mg/dL (0.60-1.30); GLOMERULAR FILTR. RATE CALC > 60 mL/min (>60); POTASSIUM 3.9 mmol/L (3.5-5.1); SODIUM SERUM 144 mmol/L (136-145); UREA NITROGEN, BLOOD 21 mg/dL (7-18)
[2017-10-10 11:02] LABS: RBC MORPHOLOGY COMMENT ABNORMAL RBC MORPH
[2017-10-10] MEDS: ACETYLCYSTEINE 20% 200 MG/ML 4 ML NEB SOLUTION NEB SCH ×2 (16:01→20:00)
[2017-10-10] MEDS: MIRTAZAPINE 15 MG TABLET PO SCH (22:12)
[2017-10-11] MEDS: IPRATROPIUM BROMIDE 0.5 MG/2.5 ML NEB SOLUTION NEB SCH ×2 (03:19→08:39)
[2017-10-11] MEDS: ALBUTEROL SULFATE 2.5 MG/0.5 ML NEB SOLUTION NEB SCH ×2 (03:20→08:39)
[2017-10-11 04:23] VITALS: BP 104/52
[2017-10-11] MEDS: ALBUTEROL SULFATE HFA 90 MCG/PUFF 8 GM INHALER IH SCH ×2 (05:16→08:52)
[2017-10-11 07:40] VITALS: BP 108/55
[2017-10-11 08:10] LABS: INR 2.5 (0.9-1.1); PROTHROMBIN TIME 26.7 SEC (9.4-11.6)
[2017-10-11] MEDS: ACETYLCYSTEINE 20% 200 MG/ML 4 ML NEB SOLUTION NEB SCH (08:40)
[2017-10-11] MEDS: OMEPRAZOLE 20 MG CAPSULE PO SCH (08:51)
[2017-10-11] MEDS: MethylPREDNISolone SOD SUCC 125 MG/2 ML VIAL IVP SCH (08:51)
[2017-10-11] MEDS: DILTIAZEM HCL 60 MG SR CAPSULE PO SCH (08:52)
[2017-10-11] MEDS: FUROSEMIDE 20 MG TABLET PO SCH (08:52)
[2017-10-11] MEDS: BENZONATATE 100 MG CAPSULE PO SCH (08:52)
[2017-10-11] MEDS: DIGOXIN 125 MCG TABLET PO SCH ×2 (08:52→09:04)
[2017-10-11] MEDS: CHOLECALCIFEROL (VIT D3) 1,000 UNITS TABLET PO SCH (08:52)
[2017-10-11] MEDS: MONTELUKAST SODIUM 10 MG TABLET PO SCH (08:53)
[2017-10-11] MEDS: GABAPENTIN 100 MG CAPSULE PO SCH (08:53)
[2017-10-11] MEDS: BUDESONIDE/FORMOTEROL FUMARATE 160-4.5 MCG/PUFF 6.9 GM INHALER IH SCH (08:54)
[2017-10-11] MEDS: OXYGEN THERAPY IH SCH (08:56)
[2017-10-11] MEDS: SERTRALINE HCL 50 MG TABLET PO SCH (09:05)
[2017-10-11 09:53] LABS: INR 2.6 (0.9-1.1); PROTHROMBIN TIME 27.1 SEC (9.4-11.6)
[2017-10-11] MEDS ORDERED: PRED20 PO (10:28)
== END 2017-10-11 11:10 | disposition home or self-care (01) | DRG 189 ==
LOC: EMS 09:35 → 5S 12:53 → 5N 18:25
PROVIDERS: ADMIT Internal Medicine; ATTEND Internal Medicine
DX: J96.01 Acute respiratory failure with hypoxia (principal); I11.0 Hypertensive heart disease with heart failure; I48.91 Unspecified atrial fibrillation; I50.9 Heart failure, unspecified; J44.1 Chronic obstructive pulmonary disease with (acute) exacerbation; N39.0 Urinary tract infection, site not specified; D63.8 Anemia in other chronic diseases classified elsewhere; E78.00 Pure hypercholesterolemia, unspecified; F17.200 Nicotine dependence, unspecified, uncomplicated; I49.9 Cardiac arrhythmia, unspecified; F41.9 Anxiety disorder, unspecified; K21.9 Gastro-esophageal reflux disease without esophagitis; M81.0 Age-related osteoporosis without current pathological fracture; R79.1 Abnormal coagulation profile; F32.9 Major depressive disorder, single episode, unspecified; M19.90 Unspecified osteoarthritis, unspecified site; Z79.01 Long term (current) use of anticoagulants; Z28.21 Immunization not carried out because of patient refusal; Z79.899 Other long term (current) drug therapy; Z86.711 Personal history of pulmonary embolism
CPT/HCPCS: 71250; 83735; 84145; 87081; 87804; 90471; 93005; 94640; 94667; 94668; 96374; 96375; 97116; 97161; 97165; 97530; 99285; C9113; J1956; J2930; J3490; J3535

== ENCOUNTER → 2017-12-31 | Outpatient (CLI) | payer MEDICARE, OTHER ==
[~2017-12-31] MED LIST changes: +DIGO-44 PO; -DIGO125T PO; +PRED20 PO
== END | disposition home or self-care (01) ==
LOC: RADMN 10:08
PROVIDERS: ATTEND Internal Medicine
DX: I67.2 Cerebral atherosclerosis (principal); I67.82 Cerebral ischemia
CPT/HCPCS: 70450

== ENCOUNTER → 2018-03-20 | Outpatient (CLI) | payer MEDICARE, OTHER ==
[~2018-03-20] MED LIST changes: +BARIUM SULFATE 0.1% SUSPENSION 450 ML BOTTLE ONE; +IOVERSOL 350 MG/ML 100 ML VIAL ONE
== END | disposition home or self-care (01) ==
LOC: RADMN 08:53
PROVIDERS: ATTEND Internal Medicine
DX: N40.0 Benign prostatic hyperplasia without lower urinary tract symptoms (principal); K40.20 Bilateral inguinal hernia, without obstruction or gangrene, not specified as recurrent; I70.0 Atherosclerosis of aorta
CPT/HCPCS: 74177; Q9967; Z7610

== ENCOUNTER → 2018-03-25 | Outpatient (CLI) | payer MEDICARE, OTHER, MEDICAID ==
[~2018-03-25] VITALS: Ht 165.1 cm; Wt 67.5 kg
[~2018-03-25] MED LIST changes: -BARIUM SULFATE 0.1% SUSPENSION 450 ML BOTTLE ONE; -IOVERSOL 350 MG/ML 100 ML VIAL ONE; +LORA10TA7 PO; +PREG50 PO; +RANI150T7 PO; +RIVA10 PO; +TERI2.4P SQ; +TIOT185 IH
[2018-03-25 13:01] VITALS: BP 115/73
== END | disposition home or self-care (01) ==
LOC: SRCNTR 12:46
PROVIDERS: ATTEND Internal Medicine Critical Care Medicine
DX: J44.1 Chronic obstructive pulmonary disease with (acute) exacerbation (principal); J84.10 Pulmonary fibrosis, unspecified; I10 Essential (primary) hypertension; I48.91 Unspecified atrial fibrillation; K21.9 Gastro-esophageal reflux disease without esophagitis; Z86.711 Personal history of pulmonary embolism
CPT/HCPCS: G0463

== ENCOUNTER → 2018-04-11 | Outpatient (CLI) | payer MEDICARE, OTHER ==
[~2018-04-11] MED LIST changes: -ALEN70TA48 PO; +GADOBUTROL 1 MMOL/ML 10 ML VIAL IVP ONE; -HYDR-309 PO; -IBUP-2070 PO; -MONT10TA21 PO; -OMEP20 PO; -PRED1 PO; -PRED20 PO; -PRIM50 PO; -SERT50TA12 PO; -WARF2.5 PO
== END | disposition home or self-care (01) ==
LOC: RADMN 09:32
PROVIDERS: ATTEND Internal Medicine
DX: N28.1 Cyst of kidney, acquired (principal); K76.89 Other specified diseases of liver; N40.1 Benign prostatic hyperplasia with lower urinary tract symptoms; M47.896 Other spondylosis, lumbar region; M80.00XS Age-related osteoporosis with current pathological fracture, unspecified site, sequela
CPT/HCPCS: 72197; 74183; A9585

== ENCOUNTER → 2018-04-16 | Outpatient (CLI) | payer MEDICARE, OTHER ==
[~2018-04-16] MED LIST changes: -GADOBUTROL 1 MMOL/ML 10 ML VIAL IVP ONE
== END | disposition home or self-care (01) ==
LOC: MSR 09:17
PROVIDERS: ATTEND Internal Medicine Critical Care Medicine
DX: M80.88XS Other osteoporosis with current pathological fracture, vertebra(e), sequela (principal); R10.84 Generalized abdominal pain; J44.1 Chronic obstructive pulmonary disease with (acute) exacerbation; M85.88 Other specified disorders of bone density and structure, other site
CPT/HCPCS: 77080; 94010; 94726; 94727; 94729

== ENCOUNTER → 2018-11-08 | Outpatient (CLI) | payer MEDICARE, OTHER ==
[~2018-11-08] VITALS: Ht 165.1 cm; Wt 71.5 kg
[~2018-11-08] MED LIST changes: -CHOL200016 PO; +CHOL200059 PO
[2018-11-08 15:09] VITALS: BP 104/54
== END | disposition home or self-care (01) ==
LOC: SRCNTR 14:37
PROVIDERS: ATTEND Internal Medicine Critical Care Medicine
DX: J44.9 Chronic obstructive pulmonary disease, unspecified (principal); I10 Essential (primary) hypertension; I26.99 Other pulmonary embolism without acute cor pulmonale; I48.91 Unspecified atrial fibrillation
CPT/HCPCS: G0463

== ENCOUNTER 2019-04-21 13:01 | Inpatient (IN) | payer MEDICARE, OTHER ==
[2019-04-21] VITALS (7 sets, daily range): BP systolic 110–152; BP diastolic 71–81
[~2019-04-21] VITALS: Ht 157.5 cm; Wt 73.0 kg
[2019-04-21] MEDS ORDERED: SERT50TA12 PO (13:10)
[2019-04-21] MEDS ORDERED: METO25 PO (13:10)
[2019-04-21] MEDS ORDERED: PRIM50 PO (13:10)
[2019-04-21] MEDS ORDERED: ATOR40TA28 PO (13:10)
[2019-04-21] MEDS ORDERED: OMEP20 PO (13:10)
[2019-04-21 13:45] LABS: BASOPHILS % (AUTO) 0.3 % (0.0-2.0); EOSINOPHILS % (AUTO) 0.3 % (1.0-6.0); HEMATOCRIT 27.5 % (41-53); HEMOGLOBIN 7.2 g/dL (13.5-17.5); MEAN CORPUSCULAR HEMOGLOBIN 15.6 pg (26.0-34.0); MEAN CORPUSCULAR HGB CONC 26.1 G/dL (31.0-37.0); MEAN CORPUSCULAR VOLUME 60 fL (80-100); MONOCYTES % (AUTO) 8.9 % (2.0-9.0); NEUTROPHILS # (AUTO) 9.4 K/uL (1.8-7.7); NEUTROPHILS % (AUTO) 81.5 % (40.0-70.0); PLATELET COUNT (AUTO) 296 K/uL (150-450); RED BLOOD CELL COUNT(AUTO) 4.58 MIL/uL (4.50-5.90); RED CELL DISTRIBUTION WIDTH 21.2 % (11.5-14.5)
[2019-04-21 13:57] LABS: ANION GAP 10 mmol/L (8-16); CARBON DIOXIDE 27 mmol/L (22-29); CHLORIDE 105 mmol/L (98-107); CREATININE 1.23 mg/dL (0.60-1.30); GLOMERULAR FILTR. RATE CALC 57 mL/min (>60); GLUCOSE,RANDOM 109 mg/dL (70-110); POTASSIUM 4.3 mmol/L (3.5-5.1); SODIUM SERUM 142 mmol/L (136-145); UREA NITROGEN, BLOOD 13 mg/dL (7-18)
[2019-04-21] MEDS ORDERED: IPRATROPIUM BROMIDE 0.5 MG/2.5 ML NEB SOLUTION NEB ONE (14:00)
[2019-04-21] MEDS ORDERED: ALBUTEROL SULFATE 2.5 MG/0.5 ML NEB SOLUTION NEB ONE (14:00)
[2019-04-21 14:02] LABS: B-TYPE NATRIURETIC PEPTIDE 279 pg/mL (0-100)
[2019-04-21 14:11] LABS: ALANINE AMINOTRANSFERASE 22 U/L (12-78); ALBUMIN 3.5 g/dL (3.4-5.0); ALKALINE PHOSPHATASE 78 U/L (46-116); ASPARTATE AMINOTRANSFERASE 17 U/L (15-37); BILIRUBIN,TOTAL 0.4 mg/dL (0.1-1.0); LACTIC ACID 4.7 mmol/L (0.4-2.0); TOTAL PROTEIN, SERUM 7.1 g/dL (6.4-8.2)
[2019-04-21 14:25] LABS: PATHOLOGY REVIEW, DIFF YES
[2019-04-21] MEDS ORDERED: MethylPREDNISolone SOD SUCC 125 MG/2 ML VIAL IVP ONE (15:00)
[2019-04-21] MEDS ORDERED: SODIUM CHLORIDE 0.9% 1,000 ML IV ONE (15:15)
[2019-04-21] MEDS ORDERED: SODIUM CHLORIDE 0.9% 500 ML IV ONE ×2 (17:04→21:31)
[2019-04-21 17:13] LABS: APPEARANCE,URINE CLEAR (CLEAR); BILIRUBIN,URINE NEGATIVE (NEGATIVE); GLUCOSE, URINE (UA) NEGATIVE (NEGATIVE); KETONES,URINE NEGATIVE (NEGATIVE); LEUKOCYTE ESTERASE ,URINE NEGATIVE (NEGATIVE); NITRATE,URINE NEGATIVE (NEGATIVE); OCCULT BLOOD,URINE NEGATIVE (NEGATIVE); PH,URINE 6.5 (5.0-8.0); PROTEIN,URINE NEGATIVE (NEGATIVE); UROBILINOGEN,URINE 0.2 mg/dL (<=1.0)
[2019-04-21] MEDS ORDERED: MAGNESIUM HYDROXIDE SUSPENSION 30 ML UDCUP PO PRN (19:15)
[2019-04-21] MEDS ORDERED: ACETAMINOPHEN 325 MG TABLET PO PRN (19:15)
[2019-04-21] MEDS ORDERED: RIVAROXABAN 10 MG TABLET PO SCH (19:15)
[2019-04-21] MEDS ORDERED: INSULIN LISPRO 100 UNITS/ML SQ PRN (19:15)
[2019-04-21] MEDS ORDERED: DEXTROSE 50%-WATER 25 GM/50 ML SYRINGE IVP PRN (19:15)
[2019-04-21] MEDS: DOCUSATE SODIUM 100 MG CAPSULE PO SCH (20:36)
[2019-04-21] MEDS ORDERED: DILTIAZEM HCL 60 MG TABLET PO SCH (21:00)
[2019-04-21] MEDS ORDERED: AZITHROMYCIN 500 MG/NS 250 ML IV SCH (21:00)
[2019-04-21] MEDS: AZITHROMYCIN 500 MG/NS 250 ML IV SCH (22:16)
[2019-04-21] MEDS: MethylPREDNISolone SOD SUCC 125 MG/2 ML VIAL IVP SCH (23:32)
[2019-04-21] MEDS ORDERED: LEVALBUTEROL HCL 1.25 MG/0.5 ML NEB SOLUTION NEB ONE (23:52)
[2019-04-21] MEDS ORDERED: 0.9% SODIUM CHLORIDE 5 ML NEB SOLUTION NEB ONE (23:59)
[2019-04-22 04:46] VITALS: BP 151/82
[2019-04-22 05:30] LABS: GLUCOMETER DEV NAME(LOC) 5N.2; GLUCOSE,POINT OF CARE 142 MG/DL (70-110)
[2019-04-22] MEDS: MethylPREDNISolone SOD SUCC 125 MG/2 ML VIAL IVP SCH ×4 (05:49→23:29)
[2019-04-22 07:16] VITALS: BP 136/85
[2019-04-22] MEDS: DILTIAZEM HCL 30 MG TABLET PO SCH ×3 (08:09→21:28)
[2019-04-22] MEDS: DOCUSATE SODIUM 100 MG CAPSULE PO SCH ×2 (08:09→21:28)
[2019-04-22] MEDS: FAMOTIDINE 20 MG TABLET PO SCH (08:10)
[2019-04-22 10:59] LABS: GLUCOMETER DEV NAME(LOC) 5N.1; GLUCOSE,POINT OF CARE 132 MG/DL (70-110)
[2019-04-22 11:00] VITALS: BP 144/75
[2019-04-22 12:59] LABS: GLUCOMETER DEV NAME(LOC) 5N.1; GLUCOSE,POINT OF CARE 129 MG/DL (70-110)
[2019-04-22] MEDS ORDERED: PEG 3350/NA SULF,BICARB,CL/KCL 4000 ML SOLUTION PO ONE (15:15)
[2019-04-22] MEDS: LEVALBUTEROL HCL 1.25 MG/0.5 ML NEB SOLUTION NEB PRN ×2 (15:19)
[2019-04-22] MEDS: IPRATROPIUM BROMIDE 0.5 MG/2.5 ML NEB SOLUTION NEB PRN ×2 (15:19)
[2019-04-22 15:25] VITALS: BP 127/74
[2019-04-22 17:36] LABS: BASOPHILS % (AUTO) 0.2 % (0.0-2.0); EOSINOPHILS % (AUTO) 0 % (1.0-6.0); HEMATOCRIT 29.1 % (41-53); HEMOGLOBIN 8.1 g/dL (13.5-17.5); LYMPHOCYTES # (AUTO) 0.6 K/uL (1.0-4.8); MEAN CORPUSCULAR HEMOGLOBIN 17.6 pg (26.0-34.0); MEAN CORPUSCULAR HGB CONC 27.7 G/dL (31.0-37.0); MEAN CORPUSCULAR VOLUME 64 fL (80-100); MONOCYTES # (AUTO) 0.2 K/uL (0.1-1.0); MONOCYTES % (AUTO) 2.6 % (2.0-9.0); NEUTROPHILS # (AUTO) 5.6 K/uL (1.8-7.7); PLATELET COUNT (AUTO) 278 K/uL (150-450); RED BLOOD CELL COUNT(AUTO) 4.57 MIL/uL (4.50-5.90)
[2019-04-22 17:43] LABS: NEUTROPHILS % (AUTO) 88.2 % (40.0-70.0)
[2019-04-22 19:24] VITALS: BP 126/58
[2019-04-22] MEDS: AZITHROMYCIN 500 MG/NS 250 ML IV SCH (21:28)
[2019-04-22 23:34] VITALS: BP 115/65
[2019-04-23 05:11] VITALS: BP 120/78
[2019-04-23] MEDS: MethylPREDNISolone SOD SUCC 125 MG/2 ML VIAL IVP SCH ×4 (06:02→23:12)
[2019-04-23 06:48] LABS: ANION GAP 9 mmol/L (8-16); CALCIUM, TOTAL 8.4 mg/dL (8.8-10.5); CARBON DIOXIDE 26 mmol/L (22-29); CHLORIDE 105 mmol/L (98-107); GLUCOSE,RANDOM 106 mg/dL (70-110); POTASSIUM 4.2 mmol/L (3.5-5.1); SODIUM SERUM 140 mmol/L (136-145); UREA NITROGEN, BLOOD 24 mg/dL (7-18)
[2019-04-23 06:57] LABS: GLOMERULAR FILTR. RATE CALC > 60 mL/min (>60)
[2019-04-23 07:22] VITALS: BP 115/72
[2019-04-23 07:22] LABS: BASOPHILS % (AUTO) 0.1 % (0.0-2.0); EOSINOPHILS % (AUTO) 0 % (1.0-6.0); HEMATOCRIT 27.1 % (41-53); HEMOGLOBIN 7.6 g/dL (13.5-17.5); LYMPHOCYTES # (AUTO) 0.5 K/uL (1.0-4.8); LYMPHOCYTES % (AUTO) 8.1 % (22.0-44.0); MEAN CORPUSCULAR HEMOGLOBIN 17.7 pg (26.0-34.0); MEAN CORPUSCULAR HGB CONC 27.8 G/dL (31.0-37.0); MEAN CORPUSCULAR VOLUME 64 fL (80-100); MONOCYTES # (AUTO) 0.2 K/uL (0.1-1.0); MONOCYTES % (AUTO) 3.6 % (2.0-9.0); NEUTROPHILS # (AUTO) 5.4 K/uL (1.8-7.7); PLATELET COUNT (AUTO) 241 K/uL (150-450); RED BLOOD CELL COUNT(AUTO) 4.26 MIL/uL (4.50-5.90); RED CELL DISTRIBUTION WIDTH 23.4 % (11.5-14.5)
[2019-04-23 07:29] LABS: NEUTROPHILS % (AUTO) 88.2 % (40.0-70.0)
[2019-04-23] MEDS: DILTIAZEM HCL 30 MG TABLET PO SCH ×3 (07:47→20:27)
[2019-04-23] MEDS: FAMOTIDINE 20 MG TABLET PO SCH (07:48)
[2019-04-23] MEDS: DOCUSATE SODIUM 100 MG CAPSULE PO SCH ×2 (07:48→20:26)
[2019-04-23 07:55] LABS: PLATELET MORPHOLOGY COMMENT GIANT PLTS PRESENT
[2019-04-23] MEDS: BUDESONIDE 0.5 MG/2 ML NEB SOLUTION NEB SCH ×2 (09:13→20:01)
[2019-04-23 11:09] VITALS: BP 112/71
[2019-04-23 11:09] LABS: GLUCOMETER DEV NAME(LOC) 5N.1; GLUCOSE,POINT OF CARE 122 MG/DL (70-110)
[2019-04-23 11:14] LABS: GLUCOMETER DEV NAME(LOC) 5S.1; GLUCOSE,POINT OF CARE 134 MG/DL (70-110)
[2019-04-23 13:04] LABS: GLUCOMETER DEV NAME(LOC) 5N.2; GLUCOSE,POINT OF CARE 114 MG/DL (70-110)
[2019-04-23 13:04] LABS: GLUCOMETER DEV NAME(LOC) 5N.2; GLUCOSE,POINT OF CARE 120 MG/DL (70-110)
[2019-04-23 13:05] LABS: GLUCOMETER DEV NAME(LOC) 5N.2; GLUCOSE,POINT OF CARE 136 MG/DL (70-110)
[2019-04-23 15:21] VITALS: BP 129/80
[2019-04-23 19:26] VITALS: BP 145/87
[2019-04-23] MEDS: IPRATROPIUM BROMIDE 0.5 MG/2.5 ML NEB SOLUTION NEB PRN (20:01)
[2019-04-23] MEDS: LEVALBUTEROL HCL 1.25 MG/0.5 ML NEB SOLUTION NEB PRN (20:01)
[2019-04-23 20:40] LABS: GLUCOMETER DEV NAME(LOC) 5N.1; GLUCOSE,POINT OF CARE 122 MG/DL (70-110)
[2019-04-23] MEDS: AZITHROMYCIN 500 MG/NS 250 ML IV SCH (23:12)
[2019-04-23] MEDS ORDERED: SODIUM CHLORIDE 0.9% 250 ML IV ONE (23:29)
[2019-04-23 23:36] VITALS: BP 120/77
[2019-04-24 04:03] VITALS: BP 141/77
[2019-04-24 05:04] LABS: GLUCOMETER DEV NAME(LOC) 5S.1; GLUCOSE,POINT OF CARE 119 MG/DL (70-110)
[2019-04-24 05:59] LABS: BASOPHILS % (AUTO) 0.1 % (0.0-2.0); EOSINOPHILS % (AUTO) 0 % (1.0-6.0); HEMATOCRIT 26.7 % (41-53); HEMOGLOBIN 7.5 g/dL (13.5-17.5); LYMPHOCYTES # (AUTO) 0.3 K/uL (1.0-4.8); MEAN CORPUSCULAR HEMOGLOBIN 17.7 pg (26.0-34.0); MEAN CORPUSCULAR VOLUME 63 fL (80-100); MONOCYTES # (AUTO) 0.2 K/uL (0.1-1.0); MONOCYTES % (AUTO) 3.9 % (2.0-9.0); NEUTROPHILS # (AUTO) 5.3 K/uL (1.8-7.7); PLATELET COUNT (AUTO) 242 K/uL (150-450); RED BLOOD CELL COUNT(AUTO) 4.22 MIL/uL (4.50-5.90)
[2019-04-24 06:13] LABS: ALANINE AMINOTRANSFERASE 46 U/L (12-78); ALKALINE PHOSPHATASE 92 U/L (46-116); ANION GAP 7 mmol/L (8-16); ASPARTATE AMINOTRANSFERASE 21 U/L (15-37); BILIRUBIN,TOTAL 0.5 mg/dL (0.1-1.0); CALCIUM, TOTAL 8.7 mg/dL (8.8-10.5); CARBON DIOXIDE 28 mmol/L (22-29); CHLORIDE 106 mmol/L (98-107); CREATININE 0.95 mg/dL (0.60-1.30); GLUCOSE,RANDOM 106 mg/dL (70-110); POTASSIUM 4.1 mmol/L (3.5-5.1); SODIUM SERUM 141 mmol/L (136-145); TOTAL PROTEIN, SERUM 6.5 g/dL (6.4-8.2); UREA NITROGEN, BLOOD 24 mg/dL (7-18)
[2019-04-24 06:18] LABS: GLOMERULAR FILTR. RATE CALC > 60 mL/min (>60)
[2019-04-24] MEDS: MethylPREDNISolone SOD SUCC 125 MG/2 ML VIAL IVP SCH ×4 (06:33→23:56)
[2019-04-24 06:56] LABS: PLATELET MORPHOLOGY COMMENT LARGE PLTS PRESENT
[2019-04-24 07:21] VITALS: BP 127/80
[2019-04-24] MEDS: FAMOTIDINE 20 MG TABLET PO SCH (08:11)
[2019-04-24] MEDS: DOCUSATE SODIUM 100 MG CAPSULE PO SCH ×2 (08:11→20:59)
[2019-04-24] MEDS: DILTIAZEM HCL 30 MG TABLET PO SCH ×3 (08:11→20:59)
[2019-04-24] MEDS: BUDESONIDE 0.5 MG/2 ML NEB SOLUTION NEB SCH ×2 (10:24→20:12)
[2019-04-24] MEDS: IPRATROPIUM BROMIDE 0.5 MG/2.5 ML NEB SOLUTION NEB PRN (10:34)
[2019-04-24] MEDS: LEVALBUTEROL HCL 1.25 MG/0.5 ML NEB SOLUTION NEB PRN (10:34)
[2019-04-24] MEDS: BENZONATATE 100 MG CAPSULE PO SCH ×3 (10:46→23:56)
[2019-04-24 11:19] VITALS: BP 138/95
[2019-04-24 15:12] VITALS: BP 134/78
[2019-04-24 19:32] VITALS: BP 132/77
[2019-04-24 20:30] LABS: GLUCOMETER DEV NAME(LOC) 5N.1; GLUCOSE,POINT OF CARE 110 MG/DL (70-110)
[2019-04-24 20:30] LABS: GLUCOMETER DEV NAME(LOC) 5S.1; GLUCOSE,POINT OF CARE 115 MG/DL (70-110)
[2019-04-24] MEDS: AZITHROMYCIN 500 MG/NS 250 ML IV SCH (21:09)
[2019-04-24 23:08] VITALS: BP_SYST 130; BP_SYST 190; BP_DIAS 75
[2019-04-25 02:34] LABS: GLUCOMETER DEV NAME(LOC) 5N.2; GLUCOSE,POINT OF CARE 88 MG/DL (70-110)
[2019-04-25] MEDS: MethylPREDNISolone SOD SUCC 125 MG/2 ML VIAL IVP SCH ×4 (05:57→23:48)
[2019-04-25 06:39] LABS: BASOPHILS % (AUTO) 0.1 % (0.0-2.0); EOSINOPHILS % (AUTO) 0 % (1.0-6.0); HEMATOCRIT 26.9 % (41-53); HEMOGLOBIN 7.6 g/dL (13.5-17.5); LYMPHOCYTES # (AUTO) 0.3 K/uL (1.0-4.8); LYMPHOCYTES % (AUTO) 5.4 % (22.0-44.0); MEAN CORPUSCULAR HEMOGLOBIN 17.9 pg (26.0-34.0); MEAN CORPUSCULAR HGB CONC 28.4 G/dL (31.0-37.0); MEAN CORPUSCULAR VOLUME 63 fL (80-100); MONOCYTES # (AUTO) 0.2 K/uL (0.1-1.0); NEUTROPHILS # (AUTO) 4.5 K/uL (1.8-7.7); PLATELET COUNT (AUTO) 227 K/uL (150-450); RED BLOOD CELL COUNT(AUTO) 4.25 MIL/uL (4.50-5.90); RED CELL DISTRIBUTION WIDTH 22.4 % (11.5-14.5)
[2019-04-25 06:52] LABS: NEUTROPHILS % (AUTO) 90.5 % (40.0-70.0)
[2019-04-25 07:00] LABS: GLUCOMETER DEV NAME(LOC) 5S.1; GLUCOSE,POINT OF CARE 101 MG/DL (70-110)
[2019-04-25 07:40] LABS: PLATELET MORPHOLOGY COMMENT GIANT PLTS PRESENT
[2019-04-25] MEDS: BUDESONIDE 0.5 MG/2 ML NEB SOLUTION NEB SCH ×2 (08:14→20:09)
[2019-04-25 08:15] VITALS: BP 130/74
[2019-04-25] MEDS: DILTIAZEM HCL 30 MG TABLET PO SCH ×3 (08:42→21:53)
[2019-04-25] MEDS: BENZONATATE 100 MG CAPSULE PO SCH ×3 (08:43→23:48)
[2019-04-25] MEDS: DOCUSATE SODIUM 100 MG CAPSULE PO SCH ×2 (08:43→21:53)
[2019-04-25] MEDS: FAMOTIDINE 20 MG TABLET PO SCH (08:43)
[2019-04-25 12:23] VITALS: BP 105/68
[2019-04-25] MEDS: IPRATROPIUM BROMIDE 0.5 MG/2.5 ML NEB SOLUTION NEB PRN ×2 (14:46→20:07)
[2019-04-25] MEDS: LEVALBUTEROL HCL 1.25 MG/0.5 ML NEB SOLUTION NEB PRN ×2 (14:46→20:07)
[2019-04-25 16:37] VITALS: BP 141/74
[2019-04-25 19:24] LABS: GLUCOMETER DEV NAME(LOC) 5N.2; GLUCOSE,POINT OF CARE 123 MG/DL (70-110)
[2019-04-25] MEDS ORDERED: 0.9% SODIUM CHLORIDE 5 ML NEB SOLUTION NEB ONE (19:57)
[2019-04-25 20:05] VITALS: BP 154/56
[2019-04-25 20:45] LABS: GLUCOMETER DEV NAME(LOC) 5S.2A; GLUCOSE,POINT OF CARE 108 MG/DL (70-110)
[2019-04-25 21:43] VITALS: BP 124/73
[2019-04-25] MEDS: AZITHROMYCIN 500 MG/NS 250 ML IV SCH (21:53)
[2019-04-25] MEDS ORDERED: DEXTROSE 5%-0.45% SODIUM CHL 1,000 ML IV PRN (23:55)
[2019-04-25 23:57] VITALS: BP 128/57
[2019-04-26 01:29] LABS: GLUCOMETER DEV NAME(LOC) 5N.2; GLUCOSE,POINT OF CARE 124 MG/DL (70-110)
[2019-04-26 04:34] VITALS: BP 128/77
[2019-04-26] MEDS: MethylPREDNISolone SOD SUCC 125 MG/2 ML VIAL IVP SCH ×4 (06:18→23:32)
[2019-04-26 06:56] LABS: INR 1.1 (0.9-1.1); PROTHROMBIN TIME 11.3 SEC (9.4-11.6)
[2019-04-26 06:57] LABS: EOSINOPHILS % (AUTO) 0 % (1.0-6.0); HEMATOCRIT 27.3 % (41-53); HEMOGLOBIN 7.6 g/dL (13.5-17.5); LYMPHOCYTES # (AUTO) 0.2 K/uL (1.0-4.8); LYMPHOCYTES % (AUTO) 3.7 % (22.0-44.0); MEAN CORPUSCULAR HEMOGLOBIN 17.8 pg (26.0-34.0); MEAN CORPUSCULAR HGB CONC 27.9 G/dL (31.0-37.0); MEAN CORPUSCULAR VOLUME 64 fL (80-100); MONOCYTES # (AUTO) 0.2 K/uL (0.1-1.0); NEUTROPHILS # (AUTO) 5.5 K/uL (1.8-7.7); PLATELET COUNT (AUTO) 222 K/uL (150-450); RED BLOOD CELL COUNT(AUTO) 4.28 MIL/uL (4.50-5.90); RED CELL DISTRIBUTION WIDTH 22.3 % (11.5-14.5)
[2019-04-26 07:02] LABS: NEUTROPHILS % (AUTO) 92.3 % (40.0-70.0)
[2019-04-26 07:20] LABS: ALANINE AMINOTRANSFERASE 42 U/L (12-78); ALBUMIN 2.8 g/dL (3.4-5.0); ALKALINE PHOSPHATASE 75 U/L (46-116); ANION GAP 9 mmol/L (8-16); ASPARTATE AMINOTRANSFERASE 16 U/L (15-37); BILIRUBIN,TOTAL 0.4 mg/dL (0.1-1.0); CALCIUM, TOTAL 8.7 mg/dL (8.8-10.5); CARBON DIOXIDE 30 mmol/L (22-29); CHLORIDE 107 mmol/L (98-107); GLUCOSE,RANDOM 102 mg/dL (70-110); POTASSIUM 3.4 mmol/L (3.5-5.1); SODIUM SERUM 146 mmol/L (136-145); UREA NITROGEN, BLOOD 25 mg/dL (7-18)
[2019-04-26 07:21] LABS: GLOMERULAR FILTR. RATE CALC > 60 mL/min (>60)
[2019-04-26] MEDS: BUDESONIDE 0.5 MG/2 ML NEB SOLUTION NEB SCH ×2 (08:09→22:30)
[2019-04-26] MEDS: IPRATROPIUM BROMIDE 0.5 MG/2.5 ML NEB SOLUTION NEB PRN ×2 (08:09→13:46)
[2019-04-26] MEDS: LEVALBUTEROL HCL 1.25 MG/0.5 ML NEB SOLUTION NEB PRN ×2 (08:09→13:46)
[2019-04-26] MEDS: FAMOTIDINE 20 MG TABLET PO SCH (08:16)
[2019-04-26] MEDS: DILTIAZEM HCL 30 MG TABLET PO SCH ×3 (08:16→21:33)
[2019-04-26] MEDS: DOCUSATE SODIUM 100 MG CAPSULE PO SCH ×2 (08:16→21:33)
[2019-04-26] MEDS: BENZONATATE 100 MG CAPSULE PO SCH ×3 (08:16→23:32)
[2019-04-26 08:25] VITALS: BP 133/70
[2019-04-26 09:19] LABS: GLUCOMETER DEV NAME(LOC) 5N.1; GLUCOSE,POINT OF CARE 120 MG/DL (70-110)
[2019-04-26] MEDS ORDERED: POTASSIUM CHLORIDE 20 MEQ ER TABLET PO ONE (15:30)
[2019-04-26 15:56] VITALS: BP 142/68
[2019-04-26] MEDS ORDERED: PEG 3350/NA SULF,BICARB,CL/KCL 4000 ML SOLUTION PO ONE (16:00)
[2019-04-26 18:24] LABS: GLUCOMETER DEV NAME(LOC) 5N.2; GLUCOSE,POINT OF CARE 106 MG/DL (70-110)
[2019-04-26 19:19] VITALS: BP 149/77
[2019-04-26] MEDS: AZITHROMYCIN 500 MG/NS 250 ML IV SCH (21:34)
[2019-04-27] VITALS: BP 108/70
[2019-04-27] MEDS: IPRATROPIUM BROMIDE 0.5 MG/2.5 ML NEB SOLUTION NEB PRN ×2 (02:18→09:32)
[2019-04-27] MEDS: LEVALBUTEROL HCL 1.25 MG/0.5 ML NEB SOLUTION NEB PRN ×3 (02:18→20:24)
[2019-04-27 04:28] VITALS: BP 130/83
[2019-04-27] MEDS: MethylPREDNISolone SOD SUCC 125 MG/2 ML VIAL IVP SCH ×3 (05:38→17:22)
[2019-04-27 07:39] LABS: GLUCOMETER DEV NAME(LOC) 5N.2; GLUCOSE,POINT OF CARE 119 MG/DL (70-110)
[2019-04-27 07:39] LABS: GLUCOMETER DEV NAME(LOC) 5N.2; GLUCOSE,POINT OF CARE 118 MG/DL (70-110)
[2019-04-27 08:14] VITALS: BP 142/73
[2019-04-27] MEDS: DOCUSATE SODIUM 100 MG CAPSULE PO SCH ×2 (08:47→20:38)
[2019-04-27] MEDS: BENZONATATE 100 MG CAPSULE PO SCH ×2 (08:47→15:41)
[2019-04-27] MEDS: DILTIAZEM HCL 30 MG TABLET PO SCH ×3 (08:47→20:38)
[2019-04-27] MEDS: FAMOTIDINE 20 MG TABLET PO SCH (08:47)
[2019-04-27] MEDS: BUDESONIDE 0.5 MG/2 ML NEB SOLUTION NEB SCH ×2 (09:32→20:23)
[2019-04-27 12:01] VITALS: BP 148/67
[2019-04-27 15:38] VITALS: BP 130/76
[2019-04-27 16:14] LABS: GLUCOMETER DEV NAME(LOC) 5N.2; GLUCOSE,POINT OF CARE 110 MG/DL (70-110)
[2019-04-27] MEDS: MethylPREDNISolone SOD SUCC 40 MG/ML VIAL IVP SCH (17:51)
[2019-04-27 20:13] VITALS: BP 126/76
[2019-04-27] MEDS: AZITHROMYCIN 500 MG/NS 250 ML IV SCH (20:39)
[2019-04-28 00:04] VITALS: BP 130/70
[2019-04-28] MEDS: MethylPREDNISolone SOD SUCC 40 MG/ML VIAL IVP SCH ×3 (00:53→11:17)
[2019-04-28] MEDS: BENZONATATE 100 MG CAPSULE PO SCH ×2 (00:53→08:02)
[2019-04-28 04:38] VITALS: BP 145/79
[2019-04-28 07:50] VITALS: BP 153/84
[2019-04-28] MEDS: DILTIAZEM HCL 30 MG TABLET PO SCH (08:02)
[2019-04-28] MEDS: FAMOTIDINE 20 MG TABLET PO SCH (08:02)
[2019-04-28] MEDS: DOCUSATE SODIUM 100 MG CAPSULE PO SCH (08:03)
[2019-04-28 11:05] LABS: GLUCOMETER DEV NAME(LOC) 5N.2; GLUCOSE,POINT OF CARE 124 MG/DL (70-110)
[2019-04-28 11:05] LABS: GLUCOMETER DEV NAME(LOC) 5N.2; GLUCOSE,POINT OF CARE 133 MG/DL (70-110)
[2019-04-28 12:00] VITALS: BP 155/91
[2019-04-28] MEDS: BUDESONIDE 0.5 MG/2 ML NEB SOLUTION NEB SCH (12:58)
[2019-04-28] MEDS ORDERED: FAMO20 PO (13:17)
[2019-04-28] MEDS ORDERED: PANT40TA25 PO (13:19)
[2019-04-28] MEDS ORDERED: ASPI81 PO (13:26)
[2019-04-28] MEDS ORDERED: ALBU8HFA IH (13:32)
[2019-04-28] MEDS ORDERED: PRED20 PO (13:33)
[2019-04-28] MEDS ORDERED: ADV100 IH (13:33)
[2019-04-28] MEDS ORDERED: ADV250 IH (13:44)
[2019-04-28 17:19] LABS: GLUCOMETER DEV NAME(LOC) 5N.1; GLUCOSE,POINT OF CARE 102 MG/DL (70-110)
[2019-04-28 17:20] LABS: GLUCOMETER DEV NAME(LOC) 5N.1; GLUCOSE,POINT OF CARE 135 MG/DL (70-110)
== END 2019-04-28 14:05 | disposition home or self-care (01) | DRG 189 ==
LOC: EMS 13:02 → 5S 17:57
PROVIDERS: ADMIT Internal Medicine; ATTEND Internal Medicine
PROC: 30233N1 Transfusion of Nonautologous Red Blood Cells into Peripheral Vein, Percutaneous Approach (ICD-10-PCS; 2019-04-21)
PROC: 5A09357 Assistance with Respiratory Ventilation, Less than 24 Consecutive Hours, Continuous Positive Airway Pressure (ICD-10-PCS; principal; 2019-04-22)
PROC: 5A09357 Assistance with Respiratory Ventilation, Less than 24 Consecutive Hours, Continuous Positive Airway Pressure (ICD-10-PCS; 2019-04-25)
PROC: 5A09357 Assistance with Respiratory Ventilation, Less than 24 Consecutive Hours, Continuous Positive Airway Pressure (ICD-10-PCS; 2019-04-26)
PROC: 5A09357 Assistance with Respiratory Ventilation, Less than 24 Consecutive Hours, Continuous Positive Airway Pressure (ICD-10-PCS; 2019-04-27)
DX: J96.21 Acute and chronic respiratory failure with hypoxia (principal); E43 Unspecified severe protein-calorie malnutrition; J44.1 Chronic obstructive pulmonary disease with (acute) exacerbation; K92.2 Gastrointestinal hemorrhage, unspecified; Z99.81 Dependence on supplemental oxygen; D63.8 Anemia in other chronic diseases classified elsewhere; I48.2 Chronic atrial fibrillation; E78.5 Hyperlipidemia, unspecified; K59.00 Constipation, unspecified; Z51.5 Encounter for palliative care; R91.1 Solitary pulmonary nodule; I10 Essential (primary) hypertension; M19.90 Unspecified osteoarthritis, unspecified site; F32.9 Major depressive disorder, single episode, unspecified; E78.00 Pure hypercholesterolemia, unspecified; M81.0 Age-related osteoporosis without current pathological fracture; F41.9 Anxiety disorder, unspecified; Z87.891 Personal history of nicotine dependence; K21.9 Gastro-esophageal reflux disease without esophagitis; Z82.49 Family history of ischemic heart disease and other diseases of the circulatory system; Z86.711 Personal history of pulmonary embolism; Z79.4 Long term (current) use of insulin; Z68.29 Body mass index [BMI] 29.0-29.9, adult; Z79.01 Long term (current) use of anticoagulants
CPT/HCPCS: 71250; 82270; 82271; 83605; 84132; 86850; 86900; 86901; 86920; 93005; 94640; 94660; 96374; 97162; 97530; G0378; J0456; J2920; J2930; J7040; J7050; P9016